=== PATIENT | female | born 1960 | race Caucasian/White ===

== ENCOUNTER 2016-12-20 11:34 | Inpatient (IN) | payer OTHER ==
[~2016-12-20] VITALS: Ht 160 cm; Wt 55.8 kg
[2016-12-20] VITALS (7 sets, daily range): BP systolic 140–215; BP diastolic 77–107; PULSE 85–105; RESP 16–20; TEMP 98.6–98.8; O2SAT 97–100
[~2016-12-20 11:34] MED LIST: HYDR-3533 PO; IBUP-232 PO; TRAM50 PO
[2016-12-20] MEDS ORDERED: HYDROmorphone HCL PF 1 MG/ML VIAL IV PUSH ONE ×2 (12:00→12:30)
--- NOTE | 2016-12-20 12:01 | PD ---
HPI Chief Complaint: Fall Time Seen by Provider: 11:43 Travel History International Travel<30 days: No Contact w/Intl Traveler<30days: No Traveled to known affect area: No History of Present Illness HPI patient's a 56-year-old female presents emergency department for evaluation of left leg and hip pain. She is unable to bear weight after falling down a single step off or her back porch. EMS reported some deformity of her left knee and it felt like her patella was displaced laterally. She was placed in splint and given 6 Davis grams of morphine and transported emergency department. Patient states she recently had a fall impacting the right side of her head while drunk, she states she thinks she may have rebound that side of her head today. Denies any neck pain denies any chest pain shortness of breath or abdominal pain. PFSH Past Medical History Arthritis: Yes Blood Disorders: No Anxiety: Yes Depression: Yes Cardiovascular Problems: Yes (HTN) Cerebrovascular Accident: Yes Diabetes: No Diminished Hearing: No Endocrine: No Gastrointestinal Disorders: Yes Genitourinary: No Hypertension: Yes Immune Disorder: No Implanted Vascular Access Dvce: No Musculoskeletal: Yes (CHRONIC BACK PAIN X 10 YRS) Neurologic: Yes Psychiatric: Yes Reproductive: No Respiratory: Yes Migraines: Yes Thyroid Disease: No Tetanus Vaccination: > 5 Years Influenza Vaccination: No ?: Not : 4 Para: 2 Miscarriage: 1 : 1 Tubal Ligation: Yes Past Surgical History Abdominal Surgery: Yes (APPENDECTOMY) Appendectomy: Yes Gynecologic Surgery: Yes Other Surgery: Yes Social History Alcohol Use: No (QUIT APPROX 1987) Tobacco Use: Yes (ABOUT A PACK A DAY) Substance Use: No (DENIES) Allergies-Medications (Allergen,Severity, Reaction): Coded Allergies: *MDRO Multi-Drug Resistant Organism (Verified Adverse Reaction, Unknown, ) MRSA PCR screen positive 12/22/16 Reported Meds & Prescriptions Reported Meds & Active Scripts Active Enola (Hydrocodone-Acetaminophen) 5-325 mg Tab 1-2 Tab PO Q4H PRN Aspirin 325 Mg Tab 325 Mg PO DAILY Start Aspirin after Lovenox is completed. Lovenox Inj (Enoxaparin Sodium) 40 Mg/0.4 Ml Syr 40 Mg SQ DAILY Start Aspirin after Lovenox is completed. Review of Systems Except as stated in HPI: all other systems reviewed are Neg Physical Exam Narrative GENERAL: Well-developed, thin, appears older than stated age, mildly discomforted. SKIN: Focused skin assessment warm/dry. HEAD: Atraumatic. Normocephalic. EYES: Pupils equal and round. No scleral icterus. No injection or drainage. ENT: No nasal bleeding or discharge. Mucous membranes pink and moist. NECK: Trachea midline. No JVD. CARDIOVASCULAR: Regular rate and rhythm. No murmur appreciated. RESPIRATORY: No accessory muscle use. Clear to auscultation. Breath sounds equal bilaterally. GASTROINTESTINAL: Abdomen soft, non-tender, nondistended. Hepatic and splenic margins not palpable. MUSCULOSKELETAL: There is an obvious shortening to the left lower extremity, tenderness along the femoral shaft particularly the distal aspect. Pulse motor and sensory intact distally in all 4 extremity's. Compartments are soft. Examination of the ankle tib-fib and hip are unremarkable. Examination remainder of extremities is unremarkable. No midline CT or L-spine tenderness.. No clubbing. No cyanosis. No edema. NEUROLOGICAL: Awake and alert. No obvious cranial nerve deficits. Motor grossly within normal limits. Normal speech. PSYCHIATRIC: Appropriate mood and affect; insight and judgment normal. Data Data Last Documented VS Vital Signs Date Time Temp Pulse Resp B/P Pulse Ox O2 Delivery O2 Flow Rate FiO2 12/20/16 14:00 105 20 180/101 97 Room Air 12/20/16 11:41 98.8 Orders Femur (Ap & Lat/2vws) (12/20/16 ) Hip, Uni(Ap&Lat) W Ap Pelvis (12/20/16 ) Ct Brain W/O Iv Contrast(Rout) (12/20/16 ) Ct Cerv Spine W/O Contrast (12/20/16 ) Chest, Single Ap (12/20/16 ) Electrocardiogram (12/20/16 11:43) Basic Metabolic Panel (Bmp) (12/20/16 11:43) Ckmb (Isoenzyme) Profile (12/20/16 11:43) Complete Blood Count With Diff (12/20/16 11:43) Magnesium (Mg) (12/20/16 11:43) Prothrombin Time / Inr (Pt) (12/20/16 11:43) Act Partial Throm Time (Ptt) (12/20/16 11:43) Ecg Monitoring (12/20/16 11:43) Iv Access Insert/Monitor (12/20/16 11:43) Oximetry (12/20/16 11:43) Oxygen Administration (12/20/16 11:43) Sodium Chloride 0.9% Flush (Ns Flush) (12/20/16 11:45) Hydromorphone Pf Inj (Dilaudid Pf Inj) (12/20/16 12:00) Hydromorphone Pf Inj (Dilaudid Pf Inj) (12/20/16 12:30) Urinary Catheter Management CASSANDRA.Q8H (12/20/16 12:37) Apply Cervical Collar (12/20/16 13:30) Ondansetron Inj (Zofran Inj) (12/20/16 13:45) Lorazepam Inj (Ativan Inj) (12/20/16 13:45) Canvas Knee Splint (Cks) (12/20/16 ) Diet Npo (12/20/16 Lunch) Ct Facial Bones W/O Iv Cont (12/20/16 ) Consult Orthopedic (12/20/16 ) Gentamicin Inj (Gentamicin Inj) (12/20/16 14:49) Remove Cervical Collar (12/20/16 14:58) Admit Order (Ed Use Only) (12/20/16 ) Alcohol (Ethanol) (12/20/16 12:05) Labs Laboratory Tests Test 12/20/16 12:05 White Blood Count 5.0 TH/MM3 Red Blood Count 4.18 MIL/MM3 Hemoglobin 13.6 GM/DL Hematocrit 40.4 % Mean Corpuscular Volume 96.6 FL Mean Corpuscular Hemoglobin 32.6 PG Mean Corpuscular Hemoglobin 33.7 % Concent Red Cell Distribution Width 14.2 % Platelet Count 242 TH/MM3 Mean Platelet Volume 9.0 FL Neutrophils (%) (Auto) 73.4 % Lymphocytes (%) (Auto) 18.2 % Monocytes (%) (Auto) 6.5 % Eosinophils (%) (Auto) 0.9 % Basophils (%) (Auto) 1.0 % Neutrophils # (Auto) 3.7 TH/MM3 Lymphocytes # (Auto) 0.9 TH/MM3 Monocytes # (Auto) 0.3 TH/MM3 Eosinophils # (Auto) 0.0 TH/MM3 Basophils # (Auto) 0.0 TH/MM3 CBC Comment DIFF FINAL Differential Comment MDM Medical Decision Making Medical Screen Exam Complete: Yes Emergency Medical Condition: Yes Interpretation(s) EKG shows normal sinus rhythm normal axis normal R-wave progression. Intervals within normal limits, no concerning ST segment changes. This normal EKG. Differential Diagnosis Femur fracture, neck injury, head injury, Narrative Course Patient roomed emergency department, plain film x-rays reveal a distal femur fracture spiral in nature. Patient also has bruising on the right side of her face and CAT scan head and C-spine were ordered. The patient states she's too claustrophobic to have a CAT scan done. She was placed in a cervical collar. Unfortunately she has distracting injury and her C-spine cannot be cleared by Nexus criteria at this time. We'll reevaluate the patient. Plan is for admission ultimately. Patient was discussed with Dr. Baldwin who will attempt to place on the schedule today for operative intervention. Patient remained nothing by mouth while in the emergency department until final decision is made for when operation to be done. Last [address] 12/20/16 Signed Impressions: Service Date/Time: Tuesday, December 20, 2016 14:09 - CONCLUSION: 1. Right infraorbital soft tissue swelling. Arnol Bee Jr., MD Hip and Pelvis X-Ray 12/20/16 0000 Signed Impressions: Service Date/Time: Tuesday, December 20, 2016 12:15 - CONCLUSION: Fracture of distal femur not identified on this examination and the hip appears intact. Gómez Clemons MD Head CT 12/20/16 0000 Signed Impressions: Service Date/Time: Tuesday, December 20, 2016 14:05 - CONCLUSION: 1. No acute intracranial abnormality. Kenny Byrd MD Femur X-Ray 12/20/16 0000 Signed Impressions: Service Date/Time: Tuesday, December 20, 2016 12:13 - CONCLUSION: Distal femoral fracture. Gómez Clemons MD Chest X-Ray 12/20/16 0000 Signed Impressions: Service Date/Time: Tuesday, December 20, 2016 12:07 - CONCLUSION: No acute cardiopulmonary disease. Gómez Clemons MD Cervical Spine CT 12/20/16 0000 Signed Impressions: Service Date/Time: Tuesday, December 20, 2016 14:05 - CONCLUSION: 1. Subtle anterolisthesis of C5 on C6, likely degenerative. Flexion and extension views may be obtained if there is clinical concern regarding ligamentous instability. 2. Otherwise, no acute fracture or subluxation. Kenny Byrd MD Her c-collar was removed following CT cervical spine is a very low index of suspicion for ligamentous injury in this patient. Diagnosis Primary Impression: Femur fracture, left Qualified Code: S72.442A - Closed displaced fracture of distal epiphysis of left femur, initial encounter Admitting Information Admitting Physician Requests: Admit Scripts Hydrocodone-Acetaminophen (Enola)5-325 mg Tab1-2 Tab PO Q4H PRN (PAIN) #60 TAB Ref 0 Prov:Kulwant Vanegas MD 12/20/16 Aspirin 325 Mg Tlo075 Mg PO DAILY #30 TAB Ref 0 Start Aspirin after Lovenox is completed. Prov:Kulwant Vanegas MD 12/20/16 Enoxaparin Inj (Lovenox Inj)40 Mg/0.4 Ml Syr40 Mg SQ DAILY #20 SYRINGE Ref 0 Start Aspirin after Lovenox is completed. Prov:Kulwant Vanegas MD 12/20/16 Condition: Stable Niranjan Reed MD Dec 20, 2016 12:01
[2016-12-20] MEDS: SODIUM CHLORIDE 0.9% FLUSH 10 ML FLUSH IVF PRN ×3 (12:04→13:50)
[2016-12-20 12:49] LABS: AUTOMATED NEUTROPHIL # 3.7 TH/MM3 (1.8-7.7); EOSINOPHIL % 0.9 % (0.0-4.0); HEMATOCRIT 40.4 % (35.0-46.0); HEMO FLAGS DIFF FINAL; LYMPH % 18.2 % (9.0-44.0); LYMPHOCYTE # 0.9 TH/MM3 (1.0-4.8); MEAN CELL VOLUME 96.6 FL (80.0-100.0); MEAN CORPUSCULAR HEMOGLOBIN 32.6 PG (27.0-34.0); MEAN CORPUSCULAR HGB CONC 33.7 % (32.0-36.0); MONO % 6.5 % (0.0-8.0); NEUT % 73.4 % (16.0-70.0); PLATELET COUNT 242 TH/MM3 (150-450); RED BLOOD COUNT 4.18 MIL/MM3 (4.00-5.30); RED CELL DISTRIBUTION WIDTH 14.2 % (11.6-17.2)
--- NOTE | 2016-12-20 13:00 | RADRPT ---
EXAM DATE/TIME: 12/20/2016 12:07 [facility] COMPARISON: CHEST SINGLE AP, January 28, 2016, 20:09. INDICATIONS : Fall, left femur fracture. MEDICAL HISTORY : None. SURGICAL HISTORY : None. ENCOUNTER: Initial ACUITY: 1 day PAIN SCORE: 0/10 LOCATION: Bilateral chest FINDINGS: The lungs are clear without infiltrate, nodule, or mass. There is no appreciable pleural effusion fo r technique. Heart and mediastinum are unremarkable. CONCLUSION: No acute cardiopulmonary disease. Gómez Clemons MD on December 20, 2016 at 12:58 Board Certified Radiologist. This report was verified electronically.
--- NOTE | 2016-12-20 13:02 | RADRPT ---
EXAM DATE/TIME: 12/20/2016 12:13 [facility] COMPARISON: No previous studies available for comparison. INDICATIONS : Fall, left femur pain. MEDICAL HISTORY : None. SURGICAL HISTORY : None. ENCOUNTER: Initial ACUITY: 1 day PAIN SCORE: 10/10 LOCATION: Left femur FINDINGS: There is a complete distal femoral fracture with angulation and displacement of the fracture fragment s. Osteopenia is seen. CONCLUSION: Distal femoral fracture. Gómez Clemons MD on December 20, 2016 at 13:00 Board Certified Radiologist. This report was verified electronically.
--- NOTE | 2016-12-20 13:06 | RADRPT ---
EXAM DATE/TIME: 12/20/2016 12:15 [facility] COMPARISON: No previous studies available for comparison. INDICATIONS : Fall, left femur pain. MEDICAL HISTORY : None. SURGICAL HISTORY : None. ENCOUNTER: Initial ACUITY: 1 day PAIN SCORE: 10/10 LOCATION: Left femur FINDINGS: No definite fractures, or dislocations are identified. No definite lytic or sclerotic lesion is seen . CONCLUSION: Fracture of distal femur not identified on this examination and the hip appears intact. Gómez Clemons MD on December 20, 2016 at 13:03 Board Certified Radiologist. This report was verified electronically.
[2016-12-20] MEDS ORDERED: ONDANSETRON HCL 4 MG/2 ML VIAL IV PUSH ONE ×2 (13:38→13:45)
[2016-12-20] MEDS ORDERED: LACTATED RINGER'S 1000 ML INJ 1,000 ML IV ONE (13:38)
[2016-12-20] MEDS ORDERED: PHENYLEPH/NS 1000 MCG/10 ML SYR IV ONE (13:38)
[2016-12-20] MEDS ORDERED: PROPOFOL 200 MG/20 ML AMP IV ONE (13:38)
[2016-12-20] MEDS ORDERED: LORazepam 2 MG/ML VIAL IV PUSH ONE (13:45)
--- NOTE | 2016-12-20 14:40 | RADRPT ---
EXAM DATE/TIME: 12/20/2016 14:09 [facility] COMPARISON: No previous studies available for comparison. INDICATIONS : Trauma, fall. Right facial bruising. RADIATION DOSE: 36.81 CTDIvol (mGy) MEDICAL HISTORY : Hypertension. SURGICAL HISTORY : None. ENCOUNTER: Initial ACUITY: 1 day PAIN SCORE: 6/10 LOCATION: Right facial TECHNIQUE: Volumetric scanning of the facial bones was performed. Using automated exposure control and adjustme nt of the mA and/or kV according to patient size, radiation dose was kept as low as reasonably achiev able to obtain optimal diagnostic quality images. DICOM format image data is available electronicAkampus y for review and comparison. FINDINGS: ORBITS: The orbital and infraorbital osseous structures are intact. The retroconal structures have a normal configuration. No radiopaque foreign bodies are seen. NASAL BONE: The nasal bone and maxillary spine are intact ZYGOMATIC ARCHES: Symmetric without evidence of fracture. SINUSES: The maxillary, ethmoid and frontal sinuses are intact. No air-fluid levels seen. NASAL CAVITY: The nasal septum is intact and midline. The lacrimal ducts are intact. SOFT TISSUES: No radiopaque foreign bodies seen. Right infraorbital soft tissue swelling. INTRACRANIAL: No intracranial air seen. CRIBIFORM PLATE: Grossly intact. CONCLUSION: 1. Right infraorbital soft tissue swelling. Arnol Bee Jr., MD on December 20, 2016 at 14:36 Board Certified Radiologist. This report was verified electronically.
[2016-12-20] MEDS ORDERED: GENTAMICIN SULFATE 80 MG/2 ML VIAL ONE (14:49)
--- NOTE | 2016-12-20 14:50 | RADRPT ---
EXAM DATE/TIME: 12/20/2016 14:05 [facility] COMPARISON: CT BRAIN W/O CONTRAST, January 28, 2016, 21:08. INDICATIONS : Trauma, fall. RADIATION DOSE: 56.35 CTDIvol (mGy) MEDICAL HISTORY : Hypertension. Cerebrovascular disease. SURGICAL HISTORY : None. ENCOUNTER: Initial ACUITY: 1 day PAIN SCALE: 0/10 LOCATION: cranial TECHNIQUE: Multiple contiguous axial images were obtained of the head. Using automated exposure control and adj ustment of the mA and/or kV according to patient size, radiation dose was kept as low as reasonably a chievable to obtain optimal diagnostic quality images. DICOM format image data is available electro nically for review and comparison. FINDINGS: CEREBRUM: The ventricles are normal for age. No evidence of midline shift, mass lesion, hemorrhage or acute in farction. No extra-axial fluid collections are seen. POSTERIOR FOSSA: The cerebellum and brainstem are intact. The 4th ventricle is midline. The cerebellopontine angle i s unremarkable. EXTRACRANIAL: The visualized portion of the orbits is intact. Mild soft tissue swelling in the right infraorbital r egion. No significant intraconal or extraconal hematoma or mass. SKULL: The calvaria is intact. No evidence of skull fracture. CONCLUSION: 1. No acute intracranial abnormality. Kenny Byrd MD on December 20, 2016 at 14:45 Board Certified Radiologist. This report was verified electronically.
--- NOTE | 2016-12-20 14:54 | RADRPT ---
EXAM DATE/TIME: 12/20/2016 14:05 [facility] COMPARISON: No previous studies available for comparison. INDICATIONS : Trauma, fall. Neck pain. RADIATION DOSE: 32.36 CTDIvol (mGy) MEDICAL HISTORY : Hypertension. SURGICAL HISTORY : None. ENCOUNTER: Initial ACUITY: 1 day PAIN SCALE: 5/10 LOCATION: neck TECHNIQUE: Volumetric scanning of the cervical spine was performed. Multiplanar reconstructions in the sagittal, coronal and oblique axial planes were performed. Using automated exposure control and adjustment o f the mA and/or kV according to patient size, radiation dose was kept as low as reasonably achievable to obtain optimal diagnostic quality images. DICOM format image data is available electronically f or review and comparison. FINDINGS: Subtle anterolisthesis of C5 on C6. Sagittal alignment is otherwise maintained. Facets are normally a ligned. The body heights are intact. No acute bony fracture. Dense is intact. Mild degenerative spond ylosis of the lower cervical spine with variable disc bulge and facet arthropathy. Bony central canal is patent. No significant prevertebral soft tissue hematoma or swelling. Visualized lung apices are clear. CONCLUSION: 1. Subtle anterolisthesis of C5 on C6, likely degenerative. Flexion and extension views may be obtain ed if there is clinical concern regarding ligamentous instability. 2. Otherwise, no acute fracture or subluxation. Kenny Byrd MD on December 20, 2016 at 14:48 Board Certified Radiologist. This report was verified electronically.
--- NOTE | 2016-12-20 15:53 | HHI.HP ---
HPI Service [facility] Hospitalists Primary Care Physician No Primary Care Physician Admission Diagnosis Femur Fracture. Diagnoses: Chief Complaint: Left leg pain s/p fall Right sided facial pain s/p fall Travel History International Travel<30 Days: No Contact w/Intl Traveler <30 Da: No Traveled to Known Affected Are: No History of Present Illness Written by Molly Garcia PA-C acting as scribe for Dr. Luu on 12/20/16 at 15:43. This is a 56-year-old female with a past medical history significant for anxiety , depression, chronic back pain and osteoarthritis who presents to [facility] ED with complaints of left leg pain status post a fall she sustained at home earlier today and was found to have a distal femur fracture. Patient reports she tripped on the steps coming out of her house and fell with her left leg up underneath her and felt a distinct pop. Patient believes she may have hit the right side of her face. Patient reports a history of falling a few days ago inside her home when she tripped over her feet after she had a few too many drinks in celebration of her anniversary injuring the right side of her face. She denies any loss of consciousness as a result of today's fall or the one that she sustained several days ago. Patient states that she is not an everyday drinker and in fact had not had any alcohol since 1987 up until 2 days ago. Presently, she is complaining of 6 out of 10 left leg pain. ED physician has already consulted or if it was tentatively planning take the patient back to the OR today. She has elevated blood pressure likely due to pain. Patient does not endorse a history of hypertension. Patient denies any headache or vision changes. She denies any cough shortness of breath or chest pain. She does endorse complaints of nausea which she thinks is from the pain medication. She denies any vomiting or abdominal pain. Denies any diarrhea, constipation or urinary difficulties. Review of Systems Except as stated in HPI: all other systems reviewed are Neg Past Family Social History Past Medical History Anxiety Depression Chronic back pain Osteoarthritis Past Surgical History Bilateral tubal ligation Appendectomy Reported Medications Patient denies any home medications. Allergies: Coded Allergies: No Known Allergies (Unverified , 12/20/16) Active Ordered Medications Current Medications Medications (Trade) Dose Ordered Sig/Laverne Route Start Time Stop Time Status Last Admin (NS Flush) 2 ml UNSCH PRN IVF 12/20/16 11:45 12/20/16 13:50 Family History Mother, age 73, healthy without any medical problems Social History Patient reports history of tobacco use of a pack per day. Patient reports no alcohol consumption since 1987 up until 2 days ago when she drank celebrating her anniversary. Patient denies any illicit drug use. Physical Exam Vital Signs Vital Signs Date Time Temp Pulse Resp B/P Pulse Ox O2 Delivery O2 Flow Rate FiO2 12/20/16 12:55 91 19 211/95 98 Room Air 12/20/16 12:20 85 20 215/107 97 Room Air 12/20/16 12:10 20 97 Room Air 12/20/16 12:05 97 Room Air 12/20/16 11:41 98.8 95 20 204/93 100 Physical Exam GENERAL: This is a well-nourished, well-developed patient, in no apparent distress. Awake and alert. SKIN: Large right-sided hematoma with associated facial swelling over the cheekbone. No ocular involvement. HEAD: Normocephalic. No temporal or scalp tenderness. EYES: Pupils equal round and reactive. Extraocular motions intact. No scleral icterus. No injection or drainage. ENT: Nose without bleeding or purulent drainage. Throat without erythema, tonsillar hypertrophy or exudate. Uvula midline. Airway patent. NECK: Trachea midline. No lymphadenopathy. Supple, nontender, no meningeal signs. CARDIOVASCULAR: Regular rate and rhythm without murmurs, gallops, or rubs. RESPIRATORY: Clear to auscultation. Breath sounds equal bilaterally. No wheezes , rales, or rhonchi. GASTROINTESTINAL: Abdomen soft, non-tender, nondistended. No hepato-splenomegaly , or palpable masses. No guarding. MUSCULOSKELETAL: Left lower extremity splinted. Neurovascular intact distally. NEUROLOGICAL: Awake and alert. Able to move all extremities except for left lower extremity which is splinted. Normal speech. Laboratory Laboratory Tests Test 12/20/16 12:05 White Blood Count 5.0 Red Blood Count 4.18 Hemoglobin 13.6 Hematocrit 40.4 Mean Corpuscular Volume 96.6 Mean Corpuscular Hemoglobin 32.6 Mean Corpuscular Hemoglobin 33.7 Concent Red Cell Distribution Width 14.2 Platelet Count 242 Mean Platelet Volume 9.0 Neutrophils (%) (Auto) 73.4 Lymphocytes (%) (Auto) 18.2 Monocytes (%) (Auto) 6.5 Eosinophils (%) (Auto) 0.9 Basophils (%) (Auto) 1.0 Neutrophils # (Auto) 3.7 Lymphocytes # (Auto) 0.9 Monocytes # (Auto) 0.3 Eosinophils # (Auto) 0.0 Basophils # (Auto) 0.0 CBC Comment DIFF FINAL Differential Comment Result Diagram: 12/20/16 1205 Imaging Last Impressions Maxillofacial CT 12/20/16 0000 Signed Impressions: Service Date/Time: Tuesday, December 20, 2016 14:09 - CONCLUSION: 1. Right infraorbital soft tissue swelling. Arnol Bee Jr., MD Hip and Pelvis X-Ray 12/20/16 0000 Signed Impressions: Service Date/Time: Tuesday, December 20, 2016 12:15 - CONCLUSION: Fracture of distal femur not identified on this examination and the hip appears intact. Gómez Clemons MD Head CT 12/20/16 0000 Signed Impressions: Service Date/Time: Tuesday, December 20, 2016 14:05 - CONCLUSION: 1. No acute intracranial abnormality. Kenny Byrd MD Femur X-Ray 12/20/16 0000 Signed Impressions: Service Date/Time: Tuesday, December 20, 2016 12:13 - CONCLUSION: Distal femoral fracture. Gómez Clemons MD Chest X-Ray 12/20/16 0000 Signed Impressions: Service Date/Time: Tuesday, December 20, 2016 12:07 - CONCLUSION: No acute cardiopulmonary disease. Gómez Clemons MD Cervical Spine CT 12/20/16 0000 Signed Impressions: Service Date/Time: Tuesday, December 20, 2016 14:05 - CONCLUSION: 1. Subtle anterolisthesis of C5 on C6, likely degenerative. Flexion and extension views may be obtained if there is clinical concern regarding ligamentous instability. 2. Otherwise, no acute fracture or subluxation. Kenny Byrd MD Assessment and Plan Assessment and Plan 56-year-old female with a past medical history significant for anxiety, depression, chronic back pain and osteoarthritis who presents to [facility] ED with complaints of left leg pain status post a fall she sustained at home earlier today and was found to have a distal femur fracture. Left distal femur fracture s/p fall at home - X-ray of the left leg personally reviewed reveals complete distal femoral fracture with angulation and displacement of the fracture fragments as well as osteopenic appearance of the bone - Keep patient nothing by mouth - Continue left leg immobilization splint - Ortho tentatively planning to take patient back to the OR today - Pain management Right sided facial contusion s/p fall at home - Patient reports initial injury 2 days ago increased she may have hit the right upper face again today - Maxillofacial CT scan personally reviewed and shows right infraorbital soft tissue swelling but no evidence of fracture - Head CT shows no acute intracranial abnormality - CT of the cervical spine shows anterolisthesis of C5 on C6 likely degenerative and no evidence of fracture or subluxation. Elevated blood pressure - Patient did not endorse a history of hypertension - Likely situational, due to pain - Clonidine when necessary - Continue to monitor DVT prophylaxis - Will hold off on chemoprophylaxis at this time due to pending surgical intervention This note was transcribed by marcus Garcia PA-C. I, Dr. Obdulio Luu personally performed the history, physical exam, and medical decision making; and confirmed the accuracy of the information in the transcribed note. Authenticated by Dr. Obdulio Luu on 12/20/16 at 17:25. Discussed Condition With Patient, , nursing staff and ED physician Physician Certification 2 Midnight Certification Type: Admission for Inpatient Services Order for Inpatient Services The services are ordered in accordance with Medicare regulations or non- Medicare payer requirements, as applicable. In the case of services not specified as inpatient-only, they are appropriately provided as inpatient services in accordance with the 2-midnight benchmark. Estimated LOS (days): 3 3 days is the estimated time the patient will need to remain in the hospital, assuming treatment plan goals are met and no additional complications. Post-Hospital Plan: Not yet determined Molly Garcia Dec 20, 2016 15:53 Obdulio Luu MD Dec 20, 2016 17:25
[2016-12-20] MEDS ORDERED: BISACODYL 10 MG SUPP RECTAL PRN (16:00)
[2016-12-20] MEDS ORDERED: LACTULOSE SYRUP 20 GM/30 ML CUP PO PRN (16:00)
[2016-12-20] MEDS ORDERED: ONDANSETRON HCL 4 MG/2 ML VIAL IVP PRN (16:00)
[2016-12-20] MEDS ORDERED: NALOXONE HCL 0.4 MG/ML AMP IV PRN ×2 (16:00→19:15)
[2016-12-20] MEDS ORDERED: ACETAMINOPHEN 325 MG TAB PO PRN (16:00)
[2016-12-20] MEDS ORDERED: HYDROmorphone HCL PF 1 MG/ML VIAL IV PRN ×2 (16:00)
[2016-12-20 16:26] LABS: APTT (PATIENT) 21.5 SEC (24.3-30.1); PROTHROMBIN TIME - PATIENT 10.7 SEC (9.8-11.6)
[2016-12-20 16:40] LABS: ANION GAP 9 MEQ/L (5-15); BICARBONATE 22.6 MEQ/L (21.0-32.0); BLOOD UREA NITROGEN 9 MG/DL (7-18); CHLORIDE 107 MEQ/L (98-107); GLOMERULAR FILTRATION RATE 103 ML/MIN (>89); MAGNESIUM 1.8 MG/DL (1.5-2.5); POTASSIUM 3.2 MEQ/L (3.5-5.1); SODIUM (NA) 139 MEQ/L (136-145)
[2016-12-20 16:49] LABS: CREATINE KINASE 80 U/L (26-192)
[2016-12-20] MEDS ORDERED: VANCOMYCIN HCL 1000 MG VIAL ONE (16:54)
[2016-12-20] MEDS ORDERED: ceFAZolin INJ 1,000 MG VIAL ONE (16:55)
[2016-12-20] MEDS ORDERED: FAMOTIDINE 20 MG/2 ML VIAL ONE (16:56)
[2016-12-20] MEDS ORDERED: MIDAZOLAM HCL 2 MG/2 ML VIAL ONE (16:56)
[2016-12-20] MEDS: DEXT 5%-NACL 0.45% 1000 ML INJ 1,000 ML IV SCH (19:11)
[2016-12-20] MEDS ORDERED: ASPI325T PO (19:14)
[2016-12-20] MEDS ORDERED: ENOX40P SQ (19:14)
[2016-12-20] MEDS ORDERED: NORC5TAB PO (19:14)
[2016-12-20] MEDS ORDERED: MAGNESIUM HYDROXIDE SUSP 30 ML CUP PO PRN (19:15)
[2016-12-20] MEDS ORDERED: MISCELLANEOUS PHARMACY INFORMATION XX ONE (19:15)
[2016-12-20] MEDS ORDERED: Post-op Orders (for Pharmacy) MISC XX ONE (19:15)
[2016-12-20] MEDS ORDERED: MISCELLANEOUS NURSING INFORMATION XX PRN (19:15)
[2016-12-20] MEDS ORDERED: SODIUM CHLORIDE 0.9% FLUSH 5 ML FLUSH IVF PRN (19:15)
[2016-12-20] MEDS ORDERED: ACETAMINOPHEN/HYDROcodone 325 MG/5 MG TAB PO PRN (19:15)
--- NOTE | 2016-12-20 19:25 | RADRPT ---
EXAM DATE/TIME: 12/20/2016 18:48 [facility] COMPARISON: FEMUR LEFT (AP & LAT/2VWS), December 20, 2016, 12:13. INDICATIONS : Post hardware placement left distal femur MEDICAL HISTORY : None. SURGICAL HISTORY : None. ENCOUNTER: Subsequent ACUITY: 1 day PAIN SCORE: Non-responsive. LOCATION: Left Femur FINDINGS: 6 images are recorded digitally using C-arm in the operating room during placement of a lateral femor al plate and multiple screws. CONCLUSION: Intraoperative images Arnol Richmond MD on December 20, 2016 at 19:22 Board Certified Radiologist. This report was verified electronically.
[2016-12-20] MEDS ORDERED: DO NOT ADM ANY ANTICOAGULANT DRUGS PRN (19:30)
[2016-12-20] MEDS ORDERED: fentaNYL CITRATE 250 MCG/5 ML AMP ONE (19:42)
[2016-12-20] MEDS ORDERED: *ONDANSETRON 4 MG VIAL PERIprocedural Use ONLY ONE (19:49)
[2016-12-20] MEDS ORDERED: *LABETALOL HCL 100 MG/20 ML VIAL PERIprocedural Use ONLY ONE ×2 (19:49→20:06)
[2016-12-20] MEDS ORDERED: *Lactated Ringer's INJ 1,000 ML ONE (20:05)
[2016-12-20] MEDS ORDERED: DOCUSATE SODIUM 50 MG/SENNA 8.6 MG TAB PO SCH (21:00)
[2016-12-20] MEDS: DOCUSATE SODIUM 50 MG/SENNA 8.6 MG TAB PO SCH (21:13)
[2016-12-20] MEDS: SODIUM CHLORIDE 0.9% FLUSH 5 ML FLUSH IVF SCH (21:13)
[2016-12-20] MEDS: ONDANSETRON HCL 4 MG/2 ML VIAL IVP PRN (21:14)
[2016-12-20] MEDS: ACETAMINOPHEN/HYDROcodone 325 MG/5 MG TAB PO PRN (21:16)
[2016-12-20] MEDS: diphenhydrAMINE HCL 25 MG CAP PO PRN (21:25)
[2016-12-20] MEDS: MORPHINE SULFATE 4 MG/ML INJ IV PUSH PRN (23:49)
[2016-12-21] VITALS (7 sets, daily range): BP systolic 133–158; BP diastolic 64–83; PULSE 80–106; RESP 16–18; TEMP 98.7–100.8; O2SAT 93–99
[2016-12-21 02:06] LABS: AUTOMATED NEUTROPHIL # 4.4 TH/MM3 (1.8-7.7); BASOPHIL % 0.6 % (0.0-2.0); EOSINOPHIL % 0.5 % (0.0-4.0); HEMATOCRIT 29.4 % (35.0-46.0); HEMO FLAGS DIFF FINAL; LYMPH % 19.7 % (9.0-44.0); LYMPHOCYTE # 1.2 TH/MM3 (1.0-4.8); MEAN CELL VOLUME 98.9 FL (80.0-100.0); MEAN CORPUSCULAR HGB CONC 32.4 % (32.0-36.0); MONO % 6.3 % (0.0-8.0); NEUT % 72.9 % (16.0-70.0); PLATELET COUNT 187 TH/MM3 (150-450); RED BLOOD COUNT 2.97 MIL/MM3 (4.00-5.30); RED CELL DISTRIBUTION WIDTH 14.4 % (11.6-17.2); WHITE BLOOD COUNT 6.1 TH/MM3 (4.0-11.0)
[2016-12-21] MEDS: MORPHINE SULFATE 4 MG/ML INJ IV PUSH PRN ×2 (03:16→08:17)
--- NOTE | 2016-12-21 05:30 | MB ---
cc: FANNY WRAY DATE OF CONSULTATION 12/20/2016 REASON FOR CONSULTATION Left femur fracture. HISTORY The patient is a 56-year-old female who has a medical history for anxiety, depression, chronic back pain and osteoarthritis, possible history of CVA in the past. The patient says that she sustained a fall earlier in the day. She tripped, twisted her leg beneath her and felt a couple of pops and the leg ended up being deformed behind her back. She had a fall a couple of days earlier than that and ended up having some bruising about the face. According to the ER physician and the notes, the patient said that she had a couple too many drinks. When I asked her about her alcohol intake, she denied having alcohol any more recently than six months ago. She does not describe significant pain in other areas of the body. The patient does chronically smoke. The patient was found to have a distal femur fracture. The ER physician contacted me, we viewed the images on line and we recommended admission to the hospitalist. The patient was admitted to the hospital. PAST MEDICAL HISTORY Medical history is as above. PAST SURGICAL HISTORY 1. Tubal ligation. 2. Appendectomy. ALLERGIES No known drug allergies. PHYSICAL EXAMINATION VITAL SIGNS: The patient's temperature is not recorded, pulse is 102, respirations 19, blood pressure 181/77. Earlier it was elevated at 215/107. GENERAL: The patient is awake, alert and oriented x 3. She has normal affect, insight and judgment. She is somewhat thin. HEENT: Her head shows bruising on the right side of the face. Extraocular muscles are intact. Oropharynx is moist and clear. NECK: Nontender. LUNGS: Clear to auscultation bilaterally. ABDOMEN: Soft, nontender, nondistended. EXTREMITIES: The left lower extremities currently in a splint with a cold machine applied. There was no drainage noted. She can actually moves the toes well and she has 2+ dorsalis pedis pulse and about her lower extremities. The bilateral shoulders, elbows and wrists had good active range of motion with no obvious angulation and no tenderness to bony prominences. LABORATORY STUDIES Reviewed. White cell count of 5.0, hematocrit is 40.4, platelets of 242. Coagulations: INR is 1.0. Chemistries: Glucose is 111, creatinine 0.6. Toxicology shows less than 3 ethyl alcohol. IMAGING STUDIES I have reviewed the x-rays of the hip and of the pelvis and of the femur and have reviewed the reports, shows the patient has diffuse osteopenia. There is a fracture of the distal end of the femur which is supracondylar in nature. There appears to be a nondisplaced crack that is going intraarticular as well, although I do not see displacement of the articular surface. She has had a head CT. The impression is no acute intracranial abnormality. Cervical spine CT shows subtle anterolisthesis of C5-6 likely degenerative, otherwise no fractures or subluxations. Chest x-ray - No acute cardiopulmonary disease. Maxillofacial CT shows right infraorbital soft tissue swelling. IMPRESSION 1. Left distal femur fracture, intraarticular. 2. Possible alcohol abuse with frequent falls. 3. Significant high blood pressures. DECISION MAKING We reviewed the diagnosis in detail with the patient. We discussed treatment options. This is a very serious fracture pattern. If left untreated this patient may not be able to ambulate effectively. This can lead to severe dysfunction of the left leg, has increased chance of developing DVT, pulmonary embolism or possible . We discussed the risks and benefits of surgical management. I have recommended urgent surgical management for this patient so as to potentially restore function to the leg. This would consist of open reduction, internal fixation. We discussed various options such as plates and screws versus intramedullary nailing. This will be determined intraoperatively. We discussed postoperative rehabilitation in detail. We discussed the use of blood thinners to help reduce the chance of blood clots. She understands the risks of surgery to include but not be limited to injury to nerves, blood vessels, bleeding, infection, failure of hardware, need for operation, continued pain, loss range of motion to associated joints, DVT, pulmonary embolus, pneumonia and . The patient does want to move forward with surgical management. The patient has been evaluated by the admitting physician and there was no definite outstanding reason to delay surgical management at this point. MD ISAIAS Chavez/ROSA /5:02 PM /5:08 AM
[2016-12-21] MEDS: DEXT 5%-NACL 0.45% 1000 ML INJ 1,000 ML IV SCH (05:36)
[2016-12-21] MEDS: ACETAMINOPHEN/HYDROcodone 325 MG/5 MG TAB PO PRN (05:36)
[2016-12-21] MEDS: NS + KCL 20 MEQ INJ 1,000 ML IV SCH ×2 (08:00→17:58)
[2016-12-21] MEDS: diphenhydrAMINE HCL 25 MG CAP PO PRN ×2 (08:16→20:05)
[2016-12-21] MEDS: MULTIVITAMINS/MINERALS THERAPEUTIC TAB PO SCH (08:16)
[2016-12-21] MEDS: DOCUSATE SODIUM 50 MG/SENNA 8.6 MG TAB PO SCH ×2 (08:17→20:04)
[2016-12-21] MEDS: SENNOSIDES 8.6 MG TAB PO PRN (08:17)
[2016-12-21] MEDS: SODIUM CHLORIDE 0.9% FLUSH 5 ML FLUSH IVF SCH ×2 (08:18→20:04)
[2016-12-21] MEDS: ONDANSETRON HCL 4 MG/2 ML VIAL IVP PRN (08:27)
[2016-12-21] MEDS ORDERED: ACETAMINOPHEN/HYDROcodone 325 MG/10 MG TAB PO PRN (09:00)
[2016-12-21] MEDS: CYCLOBENZAPRINE HCL 10 MG TAB PO PRN ×2 (09:35→17:56)
--- NOTE | 2016-12-21 12:58 | MP ---
cc: KULWANT WRAY DATE OF SURGERY: 12/20/2016 PREOPERATIVE DIAGNOSIS: Left distal femur fracture, intraarticular supracondylar. POSTOPERATIVE DIAGNOSIS: Left distal femur fracture, intraarticular supracondylar. SURGEON: Kulwant Wray MD. TRAVEL CLERK FER Turner The surgical procedure was assisted by my Advanced Registered Nurse Practitioner. My [employer] presence was necessary throughout this case for the manipulation and positioning of the surgical extremity. My [employer] was assisting me throughout the duration of this procedure. The skill set of an Advance Registered Nurse Practitioner was medically necessary to complete this procedure. During the surgical case, the surgical lead was working at the back table and the Advance Registered Nurse Practitioner was directly assisting me. OPERATION: Left distal femur, supracondylar intraarticular fracture, open reduction, internal fixation. ESTIMATED BLOOD LOSS: 300 cc. ANESTHESIA: General anesthesia. PROCEDURE: The patient was brought back to the operative theater, she received IV Ancef and vancomycin, general anesthesia was administered, both the lower extremities was prepped and draped in the usual sterile fashion. We did apply a non-sterile tourniquet but we did not use it during the case. We made it standard curvilinear incision on the lateral aspect of the knee dissected through the iliotibial band and then we reflected the vascularis lateralis anteriorly taking care of the perforating arteries using Aquamantys. This identified the fracture very nicely. The fracture did have one oblique component and then there were several other components including a nondisplaced interarticular component which remained non-displaced then some other small areas of fragmentation. We reduced the large oblique component using fracture reduction clamps and then secured this with two individual 4.5 synthes fully threaded cortex screws using a lag screw technique and countersunk technique. We then applied a synthes 8 hole lateral distal femoral plate into position, held this with verbruge clamps and then secured proximally and distally for the proximal aspect. We did use a single nonlocking screw to help reduce and pulled the plate down to the bone and all the other screws were locking. We have had four bicortical screws proximally and then there was also a fifth which was a very good unicortical possibly bicortical screw and distally we have had multiple locking screws. We made sure we had no interarticular penetration on fluoroscopic imaging showing anatomic alignment of the fracture and very good fixation. Note that she did have quite a bit of osteopenia or osteoporosis clinically as the bone was thoroughly irrigated, we closed the closed deep fascia with #1 Vicryl followed 2-0 Vicryl and skin destiny. The leg was dressed. POSTOPERATIVE PLAN: The plan is non-weightbearing and then will delay range of motion until we know she can protect the leg appropriately to allow for range of motion. We will also have deep venous thrombosis prophylaxis being Lovenox for 10 days followed by aspirin for a month as well as her insurance will allow us to use those products. MD ISAIAS Chavez/jorge /7:07 PM /12:53 PM MTDD
[2016-12-21] MEDS: NICOTINE 21 MG/24 HR PATCH T-DERMAL SCH (13:36)
[2016-12-21] MEDS: ACETAMINOPHEN/HYDROcodone 325 MG/10 MG TAB PO PRN ×2 (13:37→20:03)
--- NOTE | 2016-12-21 13:41 | EKG ---
Date Performed: 12/20/2016 Time Performed: 12:31:40 PTAGE: 56 years EKG: Sinus rhythm Since previous tracing, no significant change noted NORMAL ECG PREVIOUS TRACING : 01/28/2016 19.47 DOCTOR: Deacon Villanueva Interpretating Date/Time 12/21/2016 13:40:04
[2016-12-21 16:00] LABS: HEMATOCRIT 28.8 % (35.0-46.0); REVIEW FLAG FINAL
--- NOTE | 2016-12-21 17:48 | PD.ORT.PN ---
Subjective Post Op Day #: 1 Subjective Remarks Patient is resting in bed with c/o moderate pain to the right knee. The patient states her change in pain medication has helped. Pain is localized about the knee. Objective Vitals Vital Signs Date Time Temp Pulse Resp B/P Pulse Ox O2 Delivery O2 Flow Rate FiO2 12/21/16 08:57 99 21 12/21/16 08:00 99.2 96 18 137/83 97 12/21/16 04:00 99.5 98 17 158/80 93 12/21/16 00:00 98.7 80 16 137/77 98 12/20/16 20:58 98.6 85 16 140/79 99 12/20/16 20:30 98.6 80 20 160/78 100 Nasal Cannula 2 12/20/16 20:22 Room Air 2.00 12/20/16 20:15 80 20 164/81 100 Nasal Cannula 2 12/20/16 20:00 81 20 178/76 100 Nasal Cannula 2 12/20/16 19:45 93 20 188/84 95 Nasal Cannula 2 12/20/16 19:34 98.6 91 20 197/98 99 Nasal Cannula 2 I/O 12/20/16 12/20/16 12/20/16 12/21/16 12/21/16 12/21/16 06:59 14:59 22:59 06:59 14:59 22:59 Intake Total 1416 ml 1303 ml Output Total 800 ml 100 ml Balance 616 ml 1203 ml Intake Oral 360 ml 480 ml IV Total 56 ml 823 ml Other 1000 ml Output Urine Total 650 ml 100 ml Estimated Blood Loss 150 ml # Bowel Movements 0 Result Diagram: 12/21/16 1419 12/21/16 1419 Procedures Left distal femur supracondylar, intraarticular fracture with ORIF Objective Remarks The patient's dressing is C/D/I. Patient is wearing her knee immobilizer. EHL/ TA/G are intact. 2+ pedal pulse. Calf is soft and nontender. + SILT. Assessment & Plan Ortho Post Op Day #: 1 Problem List: Assessment and Plan POD #1: Left distal femur supracondylar, intraarticular fracture with ORIF 1. The patient will be NWB on the LLE 2. Continue with the knee immobilizer to restrict early range of motion and allow for healing 3. Daily dressing changes starting POD #2 4. Ice to the left knee PRN 5. Lovenox for 10 days followed by ASA 325 mg PO daily for 30 days for DVT prophylaxis 6. F/U with Dr. Vanegas or Kota MONROE in the office in 1-2 weeks. Harjeet Lees Dec 21, 2016 17:48
[2016-12-21] MEDS: ENOXAPARIN SODIUM 40 MG/0.4 ML SYRINGE SQ SCH (17:56)
[2016-12-21] MEDS: MAGNESIUM HYDROXIDE SUSP 30 ML CUP PO PRN (20:04)
[2016-12-22] VITALS: BP 122/67; PULSE 100; RESP 16; TEMP 100; O2SAT 95
[2016-12-22] MEDS: MORPHINE SULFATE 4 MG/ML INJ IV PUSH PRN (00:07)
[2016-12-22] MEDS: ACETAMINOPHEN/HYDROcodone 325 MG/10 MG TAB PO PRN ×4 (02:48→21:58)
[2016-12-22] MEDS: CYCLOBENZAPRINE HCL 10 MG TAB PO PRN ×3 (02:49→17:38)
[2016-12-22] MEDS: NS + KCL 20 MEQ INJ 1,000 ML IV SCH ×2 (02:50→15:45)
[2016-12-22 04:00] VITALS: BP 109/59; PULSE 98; RESP 16; TEMP 98.4; O2SAT 96
[2016-12-22 07:58] LABS: AUTOMATED NEUTROPHIL # 2.1 TH/MM3 (1.8-7.7); BASOPHIL % 0.5 % (0.0-2.0); EOSINOPHIL # 0.1 TH/MM3 (0-0.4); EOSINOPHIL % 1.6 % (0.0-4.0); HEMATOCRIT 27.5 % (35.0-46.0); HEMO FLAGS DIFF FINAL; LYMPHOCYTE # 1.5 TH/MM3 (1.0-4.8); MEAN CELL VOLUME 98.4 FL (80.0-100.0); MEAN CORPUSCULAR HGB CONC 33.5 % (32.0-36.0); MONO % 6.8 % (0.0-8.0); NEUT % 53.1 % (16.0-70.0); PLATELET COUNT 155 TH/MM3 (150-450); RED CELL DISTRIBUTION WIDTH 14.3 % (11.6-17.2)
[2016-12-22 08:00] VITALS: BP 126/68; PULSE 96; RESP 16; TEMP 99.1; O2SAT 94
[2016-12-22 08:15] LABS: POTASSIUM 4.3 MEQ/L (3.5-5.1)
[2016-12-22] MEDS: MULTIVITAMINS/MINERALS THERAPEUTIC TAB PO SCH (08:37)
[2016-12-22] MEDS: NICOTINE 21 MG/24 HR PATCH T-DERMAL SCH (08:37)
[2016-12-22] MEDS: REMOVE OLD PATCH T-DERMAL SCH (08:37)
[2016-12-22] MEDS: DOCUSATE SODIUM 50 MG/SENNA 8.6 MG TAB PO SCH ×2 (08:37→20:34)
[2016-12-22] MEDS: diphenhydrAMINE HCL 25 MG CAP PO PRN (08:40)
[2016-12-22] MEDS: SODIUM CHLORIDE 0.9% FLUSH 5 ML FLUSH IVF SCH ×2 (08:45→20:35)
--- NOTE | 2016-12-22 11:13 | HHI.PR ---
Subjective Remarks LATE ENTRY: Patient seen 12/21/16 at ~1145 AM. Follow up elevated blood pressure, leg fracture. Patient states that the pain medication is only partly effective. She is requesting nicotine patch. No chest pain, dyspnea. Objective Vitals Vital Signs Date Time Temp Pulse Resp B/P Pulse Ox O2 Delivery O2 Flow Rate FiO2 12/22/16 08:00 99.1 96 16 126/68 94 12/22/16 04:00 98.4 98 16 109/59 96 12/22/16 00:00 100.0 100 16 122/67 95 12/21/16 20:00 100.8 106 17 139/64 97 12/21/16 19:09 Room Air 12/21/16 16:00 100.7 106 18 133/79 97 12/21/16 12:00 100.1 103 18 147/78 98 I/O 12/21/16 12/21/16 12/21/16 12/22/16 12/22/16 12/22/16 06:59 14:59 22:59 06:59 14:59 22:59 Intake Total 1303 ml 2418 ml 1390 ml Output Total 100 ml 1800 ml 550 ml Balance 1203 ml 618 ml 840 ml Intake Oral 480 ml 1080 ml 360 ml IV Total 823 ml 1338 ml 1030 ml Output Urine Total 100 ml 1800 ml 550 ml # Bowel Movements 0 0 Result Diagram: 12/22/16 0712 12/22/16 0712 Imaging Last Impressions Maxillofacial CT 12/20/16 0000 Signed Impressions: Service Date/Time: Tuesday, December 20, 2016 14:09 - CONCLUSION: 1. Right infraorbital soft tissue swelling. Arnol Bee Jr., MD Hip and Pelvis X-Ray 12/20/16 0000 Signed Impressions: Service Date/Time: Tuesday, December 20, 2016 12:15 - CONCLUSION: Fracture of distal femur not identified on this examination and the hip appears intact. Gómez Clemons MD Head CT 12/20/16 0000 Signed Impressions: Service Date/Time: Tuesday, December 20, 2016 14:05 - CONCLUSION: 1. No acute intracranial abnormality. Kenny Byrd MD Femur X-Ray 12/20/16 0000 Signed Impressions: Service Date/Time: Tuesday, December 20, 2016 18:48 - CONCLUSION: Intraoperative images Arnlo Richmond MD Chest X-Ray 12/20/16 0000 Signed Impressions: Service Date/Time: Tuesday, December 20, 2016 12:07 - CONCLUSION: No acute cardiopulmonary disease. Gómez Clemons MD Cervical Spine CT 12/20/16 0000 Signed Impressions: Service Date/Time: Tuesday, December 20, 2016 14:05 - CONCLUSION: 1. Subtle anterolisthesis of C5 on C6, likely degenerative. Flexion and extension views may be obtained if there is clinical concern regarding ligamentous instability. 2. Otherwise, no acute fracture or subluxation. Kenny Byrd MD Objective Remarks General: No acute distress. Sitting up in a chair. HEENT: Contusion and swelling of the right periorbital region slightly decreased. Heart: Regular rate and rhythm. No murmur. Lungs: Clear to auscultation bilaterally. No wheezes, rales, or rhonchi. Breathing is nonlabored. Abdomen: Soft, nontender, nondistended. Extremities: Left leg in an immobilizer splint. Psych: Alert and oriented. Urinary Catheter: No Vascular Central Line Catheter: No A/P Problem List: (1) Femur fracture, left ICD Code: S72.92XA Status: Acute (2) Tobacco abuse ICD Code: Z72.0 Status: Acute (3) Elevated blood pressure reading without diagnosis of hypertension ICD Code: R03.0 Status: Resolved (4) Postoperative anemia due to acute blood loss ICD Code: D62 Status: Acute (5) Facial contusion ICD Code: S00.83XA Status: Acute (6) Anxiety ICD Code: F41.9 Status: Acute Assessment and Plan 1. Left distal femur fracture status post fall at home: Appreciate orthopedic surgery recommendations. Status post surgical repair. Continue pain control, immobilizer splint. 2. Right-sided facial contusion: Patient reported that she fell 2 days prior to admission and also believes that she hit the same area on her most recent fall. Improving. 3. Elevated blood pressure: Patient denies history of hypertension. This is likely secondary to pain. Clonidine as needed. 4. Tobacco abuse: Counseled quit smoking. Nicotine patch. 5. Postoperative anemia: Secondary to acute blood loss. Monitor H&H. Transfuse if necessary. 6. DVT prophylaxis: Lovenox. Problem Qualifiers (1) Femur fracture, left: Qualified Code: S72.442A - Closed displaced fracture of distal epiphysis of left femur, initial encounter Obdulio Luu MD Dec 22, 2016 11:13
--- NOTE | 2016-12-22 11:16 | HHI.PR ---
Subjective Remarks Follow-up anemia. Patient has been very anxious this morning. She is tearful and states that she has been arguing with her . Pain control is adequate at this time. Denies diarrhea or constipation. Denies chest pain or dyspnea. Objective Vitals Vital Signs Date Time Temp Pulse Resp B/P Pulse Ox O2 Delivery O2 Flow Rate FiO2 12/22/16 08:00 99.1 96 16 126/68 94 12/22/16 04:00 98.4 98 16 109/59 96 12/22/16 00:00 100.0 100 16 122/67 95 12/21/16 20:00 100.8 106 17 139/64 97 12/21/16 19:09 Room Air 12/21/16 16:00 100.7 106 18 133/79 97 12/21/16 12:00 100.1 103 18 147/78 98 I/O 12/21/16 12/21/16 12/21/16 12/22/16 12/22/16 12/22/16 06:59 14:59 22:59 06:59 14:59 22:59 Intake Total 1303 ml 2418 ml 1390 ml Output Total 100 ml 1800 ml 550 ml Balance 1203 ml 618 ml 840 ml Intake Oral 480 ml 1080 ml 360 ml IV Total 823 ml 1338 ml 1030 ml Output Urine Total 100 ml 1800 ml 550 ml # Bowel Movements 0 0 Result Diagram: 12/22/16 0712 12/22/16 0712 Imaging Last Impressions Maxillofacial CT 12/20/16 0000 Signed Impressions: Service Date/Time: Tuesday, December 20, 2016 14:09 - CONCLUSION: 1. Right infraorbital soft tissue swelling. Arnol Bee Jr., MD Hip and Pelvis X-Ray 12/20/16 0000 Signed Impressions: Service Date/Time: Tuesday, December 20, 2016 12:15 - CONCLUSION: Fracture of distal femur not identified on this examination and the hip appears intact. Gómez Clemons MD Head CT 12/20/16 0000 Signed Impressions: Service Date/Time: Tuesday, December 20, 2016 14:05 - CONCLUSION: 1. No acute intracranial abnormality. Kenny Byrd MD Femur X-Ray 12/20/16 0000 Signed Impressions: Service Date/Time: Tuesday, December 20, 2016 18:48 - CONCLUSION: Intraoperative images Arnol Richmond MD Chest X-Ray 12/20/16 0000 Signed Impressions: Service Date/Time: Tuesday, December 20, 2016 12:07 - CONCLUSION: No acute cardiopulmonary disease. Gómez Clemons MD Cervical Spine CT 12/20/16 0000 Signed Impressions: Service Date/Time: Tuesday, December 20, 2016 14:05 - CONCLUSION: 1. Subtle anterolisthesis of C5 on C6, likely degenerative. Flexion and extension views may be obtained if there is clinical concern regarding ligamentous instability. 2. Otherwise, no acute fracture or subluxation. Kenny Byrd MD Objective Remarks General: No acute distress. HEENT: Contusion and swelling of the right periorbital region improving. Heart: Regular rate and rhythm. No murmur. Lungs: Clear to auscultation bilaterally. No wheezes, rales, or rhonchi. Breathing is nonlabored. Abdomen: Soft, nontender, nondistended. Extremities: Left leg in an immobilizer splint. Psych: Alert and oriented. Tearful. Procedures 12/20/16 Open reduction internal fixation of left distal femur fracture Urinary Catheter: No Vascular Central Line Catheter: No A/P Problem List: (1) Femur fracture, left ICD Code: S72.92XA Status: Acute (2) Tobacco abuse ICD Code: Z72.0 Status: Acute (3) Elevated blood pressure reading without diagnosis of hypertension ICD Code: R03.0 Status: Resolved (4) Postoperative anemia due to acute blood loss ICD Code: D62 Status: Acute (5) Facial contusion ICD Code: S00.83XA Status: Acute (6) Anxiety ICD Code: F41.9 Status: Acute Assessment and Plan 1. Left distal femur fracture status post fall at home: Appreciate orthopedic surgery recommendations. Status post surgical repair. Continue pain control, immobilizer splint. 2. Right-sided facial contusion: Patient reported that she fell 2 days prior to admission and also believes that she hit the same area on her most recent fall. Improving. 3. Elevated blood pressure: Patient denies history of hypertension. This is likely secondary to pain. Clonidine as needed. 4. Tobacco abuse: Counseled to quit smoking. Continue Nicotine patch. 5. Postoperative anemia: Secondary to acute blood loss. H&H low, but remained stable overnight. Recheck labs in the morning. 6. DVT prophylaxis: Lovenox. Problem Qualifiers (1) Femur fracture, left: Qualified Code: S72.442A - Closed displaced fracture of distal epiphysis of left femur, initial encounter Obdulio Luu MD Dec 22, 2016 11:16
[2016-12-22 12:50] VITALS: BP 123/67; PULSE 99; RESP 16; TEMP 98.6; O2SAT 95
[2016-12-22] MEDS: LORazepam 0.5 MG TAB PO PRN (13:56)
--- NOTE | 2016-12-22 14:37 | PD.ORT.PN ---
Subjective Post Op Day #: 2 Subjective Remarks Patient is resting in bed with decreased pain to the left knee. Objective Vitals Vital Signs Date Time Temp Pulse Resp B/P Pulse Ox O2 Delivery O2 Flow Rate FiO2 12/22/16 12:50 98.6 99 16 123/67 95 12/22/16 08:00 99.1 96 16 126/68 94 12/22/16 04:00 98.4 98 16 109/59 96 12/22/16 00:00 100.0 100 16 122/67 95 12/21/16 20:00 100.8 106 17 139/64 97 12/21/16 19:09 Room Air 12/21/16 16:00 100.7 106 18 133/79 97 I/O 12/21/16 12/21/16 12/21/16 12/22/16 12/22/16 12/22/16 06:59 14:59 22:59 06:59 14:59 22:59 Intake Total 1303 ml 2418 ml 1390 ml Output Total 100 ml 1800 ml 550 ml Balance 1203 ml 618 ml 840 ml Intake Oral 480 ml 1080 ml 360 ml IV Total 823 ml 1338 ml 1030 ml Output Urine Total 100 ml 1800 ml 550 ml # Bowel Movements 0 0 Result Diagram: 12/22/1612 12/22/16711 Procedures Left distal femur supracondylar, intraarticular fracture with ORIF Objective Remarks The patient's dressing changed with no drainage. Incision is well approximated with surgical clips intact. No redness or s/s of infection. Patient is wearing her knee immobilizer. EHL/TA/G are intact. 2+ pedal pulse. Calf is soft and nontender. + SILT. Patient c/o pain to the lateral aspect of the left ankle. Assessment & Plan Ortho Post Op Day #: 2 Problem List: Assessment and Plan POD #2: Left distal femur supracondylar, intraarticular fracture with ORIF 1. The patient will be NWB on the LLE 2. Continue with the knee immobilizer to restrict early range of motion and allow for healing 3. Daily dressing changes 4. Ice to the left knee PRN 5. Lovenox for 10 days followed by ASA 325 mg PO daily for 30 days for DVT prophylaxis 6. F/U with Dr. Vanegas or Kota MONROE in the office in 1-2 weeks. 7. Will order an x-ray of the left ankle to r/o fracture secondary to pain and tenderness Harjeet Lees Dec 22, 2016 14:37
--- NOTE | 2016-12-22 15:14 | RADRPT ---
EXAM DATE/TIME: 12/22/2016 14:41 [facility] COMPARISON: No previous studies available for comparison. INDICATIONS : Fracture. MEDICAL HISTORY : None. SURGICAL HISTORY : None. ENCOUNTER: Initial ACUITY: 2 days PAIN SCORE: 8/10 LOCATION: Left ankle FINDINGS: Mild degenerative changes are evident. There is no acute fracture or dislocation. Minimal plantar s purring is evident.. CONCLUSION: Mild degenerative changes. Sean Chu MD FACR on December 22, 2016 at 15:11 Board Certified Radiologist. This report was verified electronically.
[2016-12-22] MEDS: MAGNESIUM HYDROXIDE SUSP 30 ML CUP PO PRN (15:39)
[2016-12-22] MEDS: SENNOSIDES 8.6 MG TAB PO PRN (15:39)
[2016-12-22 16:00] VITALS: BP 127/67; PULSE 111; RESP 16; TEMP 100.6; O2SAT 96
[2016-12-22] MEDS: ENOXAPARIN SODIUM 40 MG/0.4 ML SYRINGE SQ SCH (19:00)
[2016-12-22 20:00] VITALS: BP 123/68; PULSE 105; RESP 19; TEMP 99.5; O2SAT 95
[2016-12-23] VITALS: BP 103/59; PULSE 100; RESP 18; TEMP 98.6; O2SAT 96
[2016-12-23] MEDS: ACETAMINOPHEN/HYDROcodone 325 MG/10 MG TAB PO PRN ×4 (05:06→17:45)
[2016-12-23] MEDS: MAGNESIUM HYDROXIDE SUSP 30 ML CUP PO PRN (05:06)
[2016-12-23] MEDS: CYCLOBENZAPRINE HCL 10 MG TAB PO PRN ×3 (05:10→21:00)
[2016-12-23] MEDS: NS + KCL 20 MEQ INJ 1,000 ML IV SCH ×3 (05:11→15:16)
[2016-12-23 07:39] VITALS: BP 117/59; PULSE 104; RESP 18; TEMP 99.2; O2SAT 96
[2016-12-23] MEDS: SODIUM CHLORIDE 0.9% FLUSH 5 ML FLUSH IVF SCH ×2 (09:00→20:58)
[2016-12-23] MEDS: REMOVE OLD PATCH T-DERMAL SCH (09:00)
[2016-12-23] MEDS: DOCUSATE SODIUM 50 MG/SENNA 8.6 MG TAB PO SCH ×2 (11:01→20:57)
[2016-12-23] MEDS: MULTIVITAMINS/MINERALS THERAPEUTIC TAB PO SCH (11:01)
[2016-12-23] MEDS: NICOTINE 21 MG/24 HR PATCH T-DERMAL SCH (11:02)
--- NOTE | 2016-12-23 11:16 | HHI.PR ---
Subjective Remarks Follow up anemia, anxiety. Patient states that her anxiety is better today. Pain is adequately controlled. No chest pain, dyspnea, nausea, vomiting. Had small BM today. Objective Vitals Vital Signs Date Time Temp Pulse Resp B/P Pulse Ox O2 Delivery O2 Flow Rate FiO2 12/23/16 07:39 99.2 104 18 117/59 96 12/23/16 00:00 98.6 100 18 103/59 96 12/22/16 20:00 99.5 105 19 123/68 95 12/22/16 16:00 100.6 111 16 127/67 96 12/22/16 12:50 98.6 99 16 123/67 95 I/O 12/22/16 12/22/16 12/22/16 12/23/16 12/23/16 12/23/16 07:00 15:00 23:00 07:00 15:00 23:00 Intake Total 1390 ml 600 ml 480 ml 800 ml 600 ml Output Total 550 ml Balance 840 ml 600 ml 480 ml 800 ml 600 ml Intake Oral 360 ml 600 ml 480 ml 600 ml IV Total 1030 ml 800 ml Output Urine Total 550 ml # Voids 2 1 2 # Bowel Movements 0 0 1 1 Result Diagram: 12/22/16 0712 12/22/16 0712 Imaging Last Impressions Ankle X-Ray 12/22/16 0000 Signed Impressions: Service Date/Time: Thursday, December 22, 2016 14:41 - CONCLUSION: Mild degenerative changes. Sean Chu MD FACR Maxillofacial CT 12/20/16 0000 Signed Impressions: Service Date/Time: Tuesday, December 20, 2016 14:09 - CONCLUSION: 1. Right infraorbital soft tissue swelling. Arnol Bee Jr., MD Hip and Pelvis X-Ray 12/20/16 0000 Signed Impressions: Service Date/Time: Tuesday, December 20, 2016 12:15 - CONCLUSION: Fracture of distal femur not identified on this examination and the hip appears intact. Gómez Clemons MD Head CT 12/20/16 0000 Signed Impressions: Service Date/Time: Tuesday, December 20, 2016 14:05 - CONCLUSION: 1. No acute intracranial abnormality. Kenny Byrd MD Femur X-Ray 12/20/16 0000 Signed Impressions: Service Date/Time: Tuesday, December 20, 2016 18:48 - CONCLUSION: Intraoperative images Arnol Richmond MD Chest X-Ray 12/20/16 0000 Signed Impressions: Service Date/Time: Tuesday, December 20, 2016 12:07 - CONCLUSION: No acute cardiopulmonary disease. Gómez Clemons MD Cervical Spine CT 12/20/16 0000 Signed Impressions: Service Date/Time: Tuesday, December 20, 2016 14:05 - CONCLUSION: 1. Subtle anterolisthesis of C5 on C6, likely degenerative. Flexion and extension views may be obtained if there is clinical concern regarding ligamentous instability. 2. Otherwise, no acute fracture or subluxation. Kenny Byrd MD Objective Remarks General: No acute distress. Sitting up in a chair. HEENT: Contusion and swelling of the right periorbital region are improving. Heart: Regular rate and rhythm. No murmur. Lungs: Clear to auscultation bilaterally. No wheezes, rales, or rhonchi. Breathing is nonlabored. Abdomen: Soft, nontender, nondistended. Extremities: Left leg in an immobilizer splint. Psych: Alert and oriented. Procedures 12/20/16 Open reduction internal fixation of left distal femur fracture Urinary Catheter: No Vascular Central Line Catheter: No A/P Problem List: (1) Femur fracture, left ICD Code: S72.92XA Status: Acute (2) Tobacco abuse ICD Code: Z72.0 Status: Acute (3) Elevated blood pressure reading without diagnosis of hypertension ICD Code: R03.0 Status: Resolved (4) Postoperative anemia due to acute blood loss ICD Code: D62 Status: Acute (5) Facial contusion ICD Code: S00.83XA Status: Acute (6) Anxiety ICD Code: F41.9 Status: Acute Assessment and Plan 1. Left distal femur fracture status post fall at home: Appreciate orthopedic surgery recommendations. Status post surgical repair. Continue pain control, immobilizer splint. 2. Right-sided facial contusion: Patient reported that she fell 2 days prior to admission and also believes that she hit the same area on her most recent fall. Improving. 3. Elevated blood pressure: Patient denies history of hypertension. This is likely secondary to pain. Clonidine as needed. BP now improved. 4. Tobacco abuse: Counseled to quit smoking. Continue Nicotine patch. 5. Postoperative anemia: Secondary to acute blood loss. H&H low, but stable. Repeat labs ordered. 6. DVT prophylaxis: Lovenox. Discharge Planning PT recommending inpatient rehab. Case management assisting with discharge planning. Plan for discharge when cleared by orthopedic surgery. Problem Qualifiers (1) Femur fracture, left: Qualified Code: S72.442A - Closed displaced fracture of distal epiphysis of left femur, initial encounter Obdulio Luu MD Dec 23, 2016 11:16
[2016-12-23 11:27] VITALS: BP 105/59; PULSE 101; RESP 18; TEMP 96.3; O2SAT 96
--- NOTE | 2016-12-23 11:50 | PD.ORT.PN ---
Subjective Post Op Day #: 3 Subjective Remarks Patient is OOB in chair with continued improvement in left knee pain. Patient notes mild left ankle pain. Patient denies fevers, chills, tingling, or numbness. Objective Vitals Vital Signs Date Time Temp Pulse Resp B/P Pulse Ox O2 Delivery O2 Flow Rate FiO2 12/23/16 11:27 96.3 101 18 105/59 96 12/23/16 07:39 99.2 104 18 117/59 96 12/23/16 00:00 98.6 100 18 103/59 96 12/22/16 20:00 99.5 105 19 123/68 95 12/22/16 16:00 100.6 111 16 127/67 96 12/22/16 12:50 98.6 99 16 123/67 95 I/O 12/22/16 12/22/16 12/22/16 12/23/16 12/23/16 12/23/16 07:00 15:00 23:00 07:00 15:00 23:00 Intake Total 1390 ml 600 ml 480 ml 800 ml 600 ml Output Total 550 ml Balance 840 ml 600 ml 480 ml 800 ml 600 ml Intake Oral 360 ml 600 ml 480 ml 600 ml IV Total 1030 ml 800 ml Output Urine Total 550 ml # Voids 2 1 2 # Bowel Movements 0 0 1 1 Result Diagram: 12/22/1612 12/22/1612 Procedures Left distal femur supracondylar, intraarticular fracture with ORIF Objective Remarks Last 48 hours Impressions Ankle X-Ray 12/22/16 0000 Signed Impressions: Service Date/Time: Thursday, December 22, 2016 14:41 - CONCLUSION: Mild degenerative changes. Sean Chu MD FACR The patient's dressing is C/D/I. Patient is wearing her knee immobilizer. EHL/ TA/G are intact. 2+ pedal pulse. Calf is soft and nontender. + SILT. Mild tenderness to the lateral aspect of the left ankle. Ankle AROM mildly limited. No swelling to the left ankle. I reviewed the images of the left ankle. I agree with the radiologist's interpretation. There is no obvious fracture. Mild degenerative changes with cyst formation of lateral malleolus. Assessment & Plan Ortho Post Op Day #: 3 Problem List: Assessment and Plan POD #3: Left distal femur supracondylar, intraarticular fracture with ORIF Left ankle mild degenerative change 1. The patient will be NWB on the LLE 2. Continue with the knee immobilizer to restrict early range of motion and allow for healing 3. Daily dressing changes 4. Ice to the left knee PRN 5. Lovenox for 10 days followed by ASA 325 mg PO daily for 30 days for DVT prophylaxis 6. F/U with Dr. Vanegas or Kota MONROE in the office in 1-2 weeks. 7. XR of the left ankle is negative for fracture. Patient has mild degenerative change and small cyst. Harjeet Lees Dec 23, 2016 11:50
[2016-12-23] MEDS: LORazepam 0.5 MG TAB PO PRN ×3 (12:22→21:00)
[2016-12-23 15:28] VITALS: BP 137/87; PULSE 106; RESP 18; TEMP 96.5; O2SAT 95
[2016-12-23] MEDS: ENOXAPARIN SODIUM 40 MG/0.4 ML SYRINGE SQ SCH (17:45)
[2016-12-23 20:35] VITALS: BP 103/61; PULSE 95; RESP 17; TEMP 98.1; O2SAT 98
[2016-12-24] VITALS (9 sets, daily range): BP systolic 101–160; BP diastolic 60–75; PULSE 86–102; RESP 17–19; TEMP 96–98.5; O2SAT 93–100
[2016-12-24] MEDS: ACETAMINOPHEN/HYDROcodone 325 MG/10 MG TAB PO PRN ×3 (00:51→17:26)
[2016-12-24] MEDS: NS + KCL 20 MEQ INJ 1,000 ML IV SCH ×2 (06:00→16:00)
[2016-12-24] MEDS: SODIUM CHLORIDE 0.9% FLUSH 5 ML FLUSH IVF SCH ×2 (09:00→21:00)
[2016-12-24] MEDS: DOCUSATE SODIUM 50 MG/SENNA 8.6 MG TAB PO SCH ×2 (09:00→21:45)
[2016-12-24] MEDS: REMOVE OLD PATCH T-DERMAL SCH (09:00)
[2016-12-24] MEDS: MULTIVITAMINS/MINERALS THERAPEUTIC TAB PO SCH (09:13)
[2016-12-24] MEDS: NICOTINE 21 MG/24 HR PATCH T-DERMAL SCH (09:13)
[2016-12-24] MEDS: CYCLOBENZAPRINE HCL 10 MG TAB PO PRN ×2 (09:16→17:26)
[2016-12-24 11:46] LABS: AUTOMATED NEUTROPHIL # 1.4 TH/MM3 (1.8-7.7); BASOPHIL % 0.4 % (0.0-2.0); EOSINOPHIL # 0.1 TH/MM3 (0-0.4); EOSINOPHIL % 4.5 % (0.0-4.0); HEMATOCRIT 22.3 % (35.0-46.0); HEMO FLAGS DIFF FINAL; LYMPH % 38.9 % (9.0-44.0); LYMPHOCYTE # 1.1 TH/MM3 (1.0-4.8); MEAN CELL VOLUME 98.6 FL (80.0-100.0); MEAN CORPUSCULAR HGB CONC 33.4 % (32.0-36.0); MONO % 7.3 % (0.0-8.0); NEUT % 48.9 % (16.0-70.0); PLATELET COUNT 155 TH/MM3 (150-450); RED BLOOD COUNT 2.26 MIL/MM3 (4.00-5.30); RED CELL DISTRIBUTION WIDTH 14.3 % (11.6-17.2); WHITE BLOOD COUNT 2.9 TH/MM3 (4.0-11.0)
--- NOTE | 2016-12-24 11:57 | HHI.PR ---
Subjective Remarks Follow up for left femur fracture. Patient is doing well. However, she wants to go to a rehab in [place] if possible. She also reports some left sided facial pain and hematoma. She sustained injury at home when she fell face down. Objective Vitals Vital Signs Date Time Temp Pulse Resp B/P Pulse Ox O2 Delivery O2 Flow Rate FiO2 12/24/16 07:40 96.4 86 19 101/60 93 12/24/16 04:50 98.5 101 17 124/65 94 12/24/16 04:00 Room Air 12/24/16 00:50 97.5 99 17 160/75 95 12/24/16 00:00 Room Air 12/23/16 20:35 98.1 95 17 103/61 98 12/23/16 20:00 Room Air 12/23/16 15:28 96.5 106 18 137/87 95 I/O 12/23/16 12/23/16 12/23/16 12/24/16 12/24/16 12/24/16 07:00 15:00 23:00 07:00 15:00 23:00 Intake Total 800 ml 2066 ml 1301 ml 1178 ml Balance 800 ml 2066 ml 1301 ml 1178 ml Intake Oral 1350 ml 480 ml 480 ml IV Total 800 ml 716 ml 821 ml 698 ml # Voids 5 4 3 # Bowel Movements 1 2 2 2 Result Diagram: 12/22/16 0712 12/22/16 0712 Imaging Last Impressions Ankle X-Ray 12/22/16 0000 Signed Impressions: Service Date/Time: Thursday, December 22, 2016 14:41 - CONCLUSION: Mild degenerative changes. Sean Chu MD FACR Maxillofacial CT 12/20/16 0000 Signed Impressions: Service Date/Time: Tuesday, December 20, 2016 14:09 - CONCLUSION: 1. Right infraorbital soft tissue swelling. Arnol Bee Jr., MD Hip and Pelvis X-Ray 12/20/16 0000 Signed Impressions: Service Date/Time: Tuesday, December 20, 2016 12:15 - CONCLUSION: Fracture of distal femur not identified on this examination and the hip appears intact. Gómez Clemons MD Head CT 12/20/16 0000 Signed Impressions: Service Date/Time: Tuesday, December 20, 2016 14:05 - CONCLUSION: 1. No acute intracranial abnormality. Kenny Byrd MD Femur X-Ray 12/20/16 0000 Signed Impressions: Service Date/Time: Tuesday, December 20, 2016 18:48 - CONCLUSION: Intraoperative images Arnol Richmond MD Chest X-Ray 12/20/16 0000 Signed Impressions: Service Date/Time: Tuesday, December 20, 2016 12:07 - CONCLUSION: No acute cardiopulmonary disease. Gómez Clemons MD Cervical Spine CT 12/20/16 0000 Signed Impressions: Service Date/Time: Tuesday, December 20, 2016 14:05 - CONCLUSION: 1. Subtle anterolisthesis of C5 on C6, likely degenerative. Flexion and extension views may be obtained if there is clinical concern regarding ligamentous instability. 2. Otherwise, no acute fracture or subluxation. Kenny Byrd MD Objective Remarks GENERAL: AOX3, NAD SKIN: Warm and dry. HEAD: Normocephalic. Left sided facial pain, hematoma. No erythema, no drainage. EYES: No scleral icterus. No injection or drainage. NECK: Supple, trachea midline. No JVD or lymphadenopathy. CARDIOVASCULAR: Regular rate and rhythm without murmurs, gallops, or rubs. RESPIRATORY: Breath sounds equal bilaterally. No accessory muscle use. GASTROINTESTINAL: Abdomen soft, non-tender, nondistended. MUSCULOSKELETAL: No cyanosis, or edema. BACK: Nontender without obvious deformity. No CVA tenderness. Procedures 12/20/16 Open reduction internal fixation of left distal femur fracture A/P Problem List: (1) Femur fracture, left ICD Code: S72.92XA Status: Acute (2) Tobacco abuse ICD Code: Z72.0 Status: Acute (3) Elevated blood pressure reading without diagnosis of hypertension ICD Code: R03.0 Status: Resolved (4) Postoperative anemia due to acute blood loss ICD Code: D62 Status: Acute (5) Facial contusion ICD Code: S00.83XA Status: Acute (6) Anxiety ICD Code: F41.9 Status: Acute Assessment and Plan 1. Left distal femur fracture status post fall at home: Appreciate orthopedic surgery recommendations. Status post surgical repair. Continue pain control, immobilizer splint. 2. Right-sided facial contusion: Patient reported that she fell 2 days prior to admission and also believes that she hit the same area on her most recent fall. Improving. 3. Elevated blood pressure: Patient denies history of hypertension. This is likely secondary to pain. Clonidine as needed. BP now improved. 4. Tobacco abuse: Counseled to quit smoking. Continue Nicotine patch. 5. Postoperative anemia: Secondary to acute blood loss. H&H low, but stable. Repeat labs ordered. 6. DVT prophylaxis: Lovenox. Discharge plan: It was not clear if patient wants to go home with outpatient PT or SNF. SNF choices are very limited due to insurance. Patient wants to go to a rehab in [place]. Unfortunately, that would not be possible due to insurance constraints. Discussed with PT. Patient can likely be discharged home on 12/25/2016 with outpatient PT if patient agrees. Problem Qualifiers (1) Femur fracture, left: Qualified Code: S72.442A - Closed displaced fracture of distal epiphysis of left femur, initial encounter Kirk Adkins DO Dec 24, 2016 11:57
[2016-12-24] MEDS ORDERED: XARE20TA PO (12:22)
[2016-12-24] MEDS: LORazepam 0.5 MG TAB PO PRN ×2 (12:59→21:44)
[2016-12-24] MEDS: diphenhydrAMINE HCL 25 MG CAP PO PRN (13:02)
[2016-12-24] MEDS: ENOXAPARIN SODIUM 40 MG/0.4 ML SYRINGE SQ SCH (18:45)
[2016-12-24] MEDS ORDERED: MECLIZINE HCL 25 MG TAB PO ONE (22:45)
[2016-12-25] MEDS: ACETAMINOPHEN/HYDROcodone 325 MG/10 MG TAB PO PRN ×5 (00:43→23:09)
[2016-12-25] MEDS: NS + KCL 20 MEQ INJ 1,000 ML IV SCH ×3 (02:00→22:00)
[2016-12-25 04:13] VITALS: BP 117/56; PULSE 81; RESP 17; TEMP 97.1; O2SAT 95
[2016-12-25] MEDS: LORazepam 0.5 MG TAB PO PRN ×2 (06:10→23:09)
[2016-12-25] MEDS: CYCLOBENZAPRINE HCL 10 MG TAB PO PRN ×2 (06:10→17:45)
[2016-12-25 08:00] VITALS: BP 133/71; PULSE 84; RESP 16; TEMP 96.6; O2SAT 97
[2016-12-25] MEDS: SODIUM CHLORIDE 0.9% FLUSH 5 ML FLUSH IVF SCH ×2 (08:44→23:09)
[2016-12-25] MEDS: NICOTINE 21 MG/24 HR PATCH T-DERMAL SCH (08:44)
[2016-12-25] MEDS: DOCUSATE SODIUM 50 MG/SENNA 8.6 MG TAB PO SCH ×2 (08:44→23:08)
[2016-12-25] MEDS: MULTIVITAMINS/MINERALS THERAPEUTIC TAB PO SCH (08:44)
[2016-12-25] MEDS: REMOVE OLD PATCH T-DERMAL SCH (08:44)
--- NOTE | 2016-12-25 11:00 | HHI.PR ---
Subjective Remarks This is a 56-year-old female with a past medical history significant for anxiety , depression, chronic back pain and osteoarthritis who presents to [facility] ED with complaints of left leg pain status post a fall she sustained at home earlier today and was found to have a distal femur fracture. Patient reports she tripped on the steps coming out of her house and fell with her left leg up underneath her and felt a distinct pop. Patient believes she may have hit the right side of her face. Patient reports a history of falling a few days ago inside her home when she tripped over her feet after she had a few too many drinks in celebration of her anniversary injuring the right side of her face. She denies any loss of consciousness as a result of today's fall or the one that she sustained several days ago. Patient states that she is not an everyday drinker and in fact had not had any alcohol since 1987 up until 2 days ago. Presently, she is complaining of 6 out of 10 left leg pain. ED physician has already consulted or if it was tentatively planning take the patient back to the OR today. She has elevated blood pressure likely due to pain. Patient does not endorse a history of hypertension. Patient denies any headache or vision changes. She denies any cough shortness of breath or chest pain. She does endorse complaints of nausea which she thinks is from the pain medication. She denies any vomiting or abdominal pain. Denies any diarrhea, constipation or urinary difficulties. Objective Vitals Vital Signs Date Time Temp Pulse Resp B/P Pulse Ox O2 Delivery O2 Flow Rate FiO2 12/25/16 08:00 96.6 84 16 133/71 97 12/25/16 04:13 97.1 81 17 117/56 95 12/24/16 23:17 97.2 89 17 131/64 97 12/24/16 23:16 97.2 89 17 131/64 97 12/24/16 20:00 97.1 102 18 146/72 100 12/24/16 17:32 96 21 12/24/16 16:00 96.0 99 17 132/62 96 12/24/16 11:54 97.1 95 19 107/61 95 I/O 12/24/16 12/24/16 12/24/16 12/25/16 12/25/16 12/25/16 07:00 15:00 23:00 07:00 15:00 23:00 Intake Total 1178 ml 800 ml 240 ml 570 ml Balance 1178 ml 800 ml 240 ml 570 ml Intake Oral 480 ml 800 ml 240 ml 240 ml IV Total 698 ml Packed Cells 330 ml # Voids 3 2 1 3 # Bowel Movements 2 1 0 Result Diagram: 12/24/16 1100 12/22/16 0712 Other Results Laboratory Tests Test 12/24/16 12/24/16 12/24/16 11:00 13:33 18:31 White Blood Count 2.9 TH/MM3 Red Blood Count 2.26 MIL/MM3 Hemoglobin 7.5 GM/DL Hematocrit 22.3 % Mean Corpuscular Volume 98.6 FL Mean Corpuscular Hemoglobin 33.0 PG Mean Corpuscular Hemoglobin 33.4 % Concent Red Cell Distribution Width 14.3 % Platelet Count 155 TH/MM3 Mean Platelet Volume 8.3 FL Neutrophils (%) (Auto) 48.9 % Lymphocytes (%) (Auto) 38.9 % Monocytes (%) (Auto) 7.3 % Eosinophils (%) (Auto) 4.5 % Basophils (%) (Auto) 0.4 % Neutrophils # (Auto) 1.4 TH/MM3 Lymphocytes # (Auto) 1.1 TH/MM3 Monocytes # (Auto) 0.2 TH/MM3 Eosinophils # (Auto) 0.1 TH/MM3 Basophils # (Auto) 0.0 TH/MM3 CBC Comment DIFF FINAL Differential Comment Blood Type O POSITIVE O POSITIVE Antibody Screen NEGATIVE Crossmatch Leukocyte-Reduced Red Blood Cells Blood Bank Comment Imaging Last Impressions Ankle X-Ray 12/22/16 0000 Signed Impressions: Service Date/Time: Thursday, December 22, 2016 14:41 - CONCLUSION: Mild degenerative changes. Sean Chu MD FACR Maxillofacial CT 12/20/16 0000 Signed Impressions: Service Date/Time: Tuesday, December 20, 2016 14:09 - CONCLUSION: 1. Right infraorbital soft tissue swelling. Arnol Bee Jr., MD Hip and Pelvis X-Ray 12/20/16 0000 Signed Impressions: Service Date/Time: Tuesday, December 20, 2016 12:15 - CONCLUSION: Fracture of distal femur not identified on this examination and the hip appears intact. Gómez Clemons MD Head CT 12/20/16 0000 Signed Impressions: Service Date/Time: Tuesday, December 20, 2016 14:05 - CONCLUSION: 1. No acute intracranial abnormality. Kenny Byrd MD Femur X-Ray 12/20/16 0000 Signed Impressions: Service Date/Time: Tuesday, December 20, 2016 18:48 - CONCLUSION: Intraoperative images Arnol Richmond MD Chest X-Ray 12/20/16 0000 Signed Impressions: Service Date/Time: Tuesday, December 20, 2016 12:07 - CONCLUSION: No acute cardiopulmonary disease. Gómez Clemons MD Cervical Spine CT 12/20/16 0000 Signed Impressions: Service Date/Time: Tuesday, December 20, 2016 14:05 - CONCLUSION: 1. Subtle anterolisthesis of C5 on C6, likely degenerative. Flexion and extension views may be obtained if there is clinical concern regarding ligamentous instability. 2. Otherwise, no acute fracture or subluxation. Kenny Byrd MD Objective Remarks GENERAL: AWAKE ALERT AND ORIENTED SKIN: Warm and dry. HEAD: Atraumatic. Normocephalic. EYES: Pupils equal and round. No scleral icterus. No injection or drainage. EOMI INTACT ENT: No nasal bleeding or discharge. Mucous membranes pink and moist. TONGUE MIDLINE NECK: Trachea midline. No JVD. CARDIOVASCULAR: Regular rate and rhythm. S1, S2 NO S3 OR S4 NO HEAVE OR THRILL OR RUB OR GALLOP RESPIRATORY: No accessory muscle use. Clear to auscultation. Breath sounds equal bilaterally. GASTROINTESTINAL: Abdomen soft, non-tender, nondistended. Hepatic and splenic margins not palpable. MUSCULOSKELETAL: Extremities without clubbing, cyanosis, or edema. No obvious deformities. LEFT LE IN BRACE- NEEDS TO LEARN HOW TO MOVE WELL WITHOUT PUTTING WEIGHT ON IT NEUROLOGICAL: Awake and alert. No obvious cranial nerve deficits. Motor grossly within normal limits. 4 out of 5 muscle strength in the arms and legs. Normal speech. PSYCHIATRIC: Appropriate mood and affect; insight and judgment normal. Procedures 12/20/16 Open reduction internal fixation of left distal femur fracture Medications and IVs Current Medications Medications (Trade) Dose Ordered Sig/Laverne Route Start Time Stop Time Status Last Admin (Tylenol) 650 mg Q4H PRN PO 12/20/16 16:00 (Milk Of Magnesia Liq) 30 ml Q12H PRN PO 12/20/16 16:00 12/23/16 05:06 (Senokot) 17.2 mg Q12H PRN PO 12/20/16 16:00 12/22/16 15:39 Active Medications Meclizine HCl (Antivert) 25 mg ONCE ONCE PO Last administered on 12/24/16t 23:12 ; Start 12/24/16 at 22:45; Stop 12/24/16 at 22:46; Status DC (Dulcolax Supp) 10 mg DAILY PRN RECTAL 12/20/16 16:00 (Lactulose Liq) 30 ml DAILY PRN PO 12/20/16 16:00 (NS Flush) 2 ml UNSCH PRN IVF 12/20/16 19:15 (NS Flush) 2 ml BID IVF 12/20/16 21:00 12/25/16 08:44 (Lovenox Inj) 40 mg Q24H SQ 12/21/16 19:00 12/30/16 19:01 12/24/16 18:45 (Debora-Colace) 1 tab BID PO 12/20/16 21:00 12/25/16 08:44 Miscellaneous Information UNSCH PRN XX 12/20/16 19:15 (Zofran Inj) 4 mg Q4H PRN IVP 12/20/16 19:15 12/21/16 08:27 (Theragran M Tab) 1 tab DAILY PO 12/21/16 09:00 12/25/16 08:44 (Benadryl) 25 mg Q6H PRN PO 12/20/16 19:15 12/24/16 13:02 (Narcan Inj) 0.4 mg UNSCH PRN IV 12/20/16 19:15 Morphine Sulfate 2 mg 2 mg Q3H PRN IV PUSH 12/20/16 19:15 12/22/16 00:07 (NS + KCl 20 Meq Inj) 1,000 ml @ 100 mls/hr Q10H IV 12/21/16 08:00 12/23/16 15:16 (Flexeril) 10 mg Q8H PRN PO 12/21/16 09:00 12/25/16 06:10 ([place] 10-325 Mg) 2 tab Q6H PRN PO 12/21/16 09:00 12/25/16 00:43 ([place] 10-325 Mg) 1 tab Q6HR PRN PO 12/21/16 11:56 12/25/16 09:00 (Habitrol 21 Mg Patch.24 Hr) 1 patch DAILY T-DERMAL 12/21/16 12:00 12/25/16 08:44 Miscellaneous Information 1 DAILY T-DERMAL 12/22/16 09:00 12/25/16 08:44 (Ativan) 0.5 mg Q8H PRN PO 12/22/16 13:00 12/25/16 06:10 Urinary Catheter: No Vascular Central Line Catheter: No A/P Problem List: (1) Femur fracture, left ICD Code: S72.92XA Status: Acute Plan: SP SURGERY ORIF (2) Tobacco abuse ICD Code: Z72.0 Status: Acute Plan: SMOKING CESSATION RECOMMENDED (3) Elevated blood pressure reading without diagnosis of hypertension ICD Code: R03.0 Status: Resolved Plan: MONITOR BLOOD PRESSURE (4) Postoperative anemia due to acute blood loss ICD Code: D62 Status: Acute Plan: CHECK LABS TODAY (5) Facial contusion ICD Code: S00.83XA Status: Acute Plan: PAIN CONTROL (6) Anxiety ICD Code: F41.9 Status: Acute Plan: HOME MEDS Assessment and Plan 1. Left distal femur fracture status post fall at home: Appreciate orthopedic surgery recommendations. Status post surgical repair. Continue pain control, immobilizer splint. 2. Right-sided facial contusion: Patient reported that she fell 2 days prior to admission and also believes that she hit the same area on her most recent fall. Improving. 3. Elevated blood pressure: Patient denies history of hypertension. This is likely secondary to pain. Clonidine as needed. BP now improved. 4. Tobacco abuse: Counseled to quit smoking. Continue Nicotine patch. 5. Postoperative anemia: Secondary to acute blood loss. H&H low, but stable. Repeat labs ordered. CHECK LABS TODAY 6. DVT prophylaxis: Lovenox. Discharge plan: It was not clear if patient wants to go home with outpatient PT or SNF. SNF choices are very limited due to insurance. Patient wants to go to a rehab in [place]. Unfortunately, that would not be possible due to insurance constraints. Discussed with PT. Patient can likely be discharged home on 12/26/2016 with outpatient PT if patient agrees. Problem Qualifiers (1) Femur fracture, left: Qualified Code: S72.442A - Closed displaced fracture of distal epiphysis of left femur, initial encounter Sean Landry DO Dec 25, 2016 11:00
[2016-12-25 12:00] VITALS: BP 123/72; PULSE 88; RESP 16; TEMP 97.8; O2SAT 93
[2016-12-25 16:00] VITALS: BP 122/69; PULSE 84; RESP 16; TEMP 97.4; O2SAT 96
[2016-12-25] MEDS: ENOXAPARIN SODIUM 40 MG/0.4 ML SYRINGE SQ SCH (18:58)
[2016-12-25 19:36] LABS: AUTOMATED NEUTROPHIL # 1.1 TH/MM3 (1.8-7.7); BASOPHIL % 0.6 % (0.0-2.0); EOSINOPHIL # 0.2 TH/MM3 (0-0.4); EOSINOPHIL % 5.7 % (0.0-4.0); HEMATOCRIT 28.8 % (35.0-46.0); HEMO FLAGS DIFF FINAL; LYMPH % 45.7 % (9.0-44.0); LYMPHOCYTE # 1.3 TH/MM3 (1.0-4.8); MEAN CORPUSCULAR HEMOGLOBIN 32.4 PG (27.0-34.0); MEAN CORPUSCULAR HGB CONC 34.1 % (32.0-36.0); MONO % 6.5 % (0.0-8.0); NEUT % 41.5 % (16.0-70.0); PLATELET COUNT 197 TH/MM3 (150-450); RED BLOOD COUNT 3.04 MIL/MM3 (4.00-5.30); WHITE BLOOD COUNT 2.8 TH/MM3 (4.0-11.0)
[2016-12-25 19:37] LABS: ANION GAP 7 MEQ/L (5-15); AST (GOT) 19 U/L (15-37); BICARBONATE 29.8 MEQ/L (21.0-32.0); BLOOD UREA NITROGEN 10 MG/DL (7-18); CHLORIDE 101 MEQ/L (98-107); GLOMERULAR FILTRATION RATE 137 ML/MIN (>89); MAGNESIUM 1.9 MG/DL (1.5-2.5); SODIUM (NA) 138 MEQ/L (136-145)
[2016-12-25 19:38] LABS: ALT (GPT) 12 U/L (10-53)
[2016-12-25 19:46] LABS: ALKALINE PHOSPHATASE 58 U/L (45-117); FREE T4 0.91 NG/DL (0.76-1.46); TOTAL BILIRUBIN ADULT 0.2 MG/DL (0.2-1.0)
[2016-12-25 20:15] VITALS: BP 131/73; PULSE 97; RESP 18; TEMP 98.1; O2SAT 96
[2016-12-26 00:05] VITALS: BP 127/73; PULSE 87; RESP 18; TEMP 97.8; O2SAT 98
[2016-12-26] MEDS: CYCLOBENZAPRINE HCL 10 MG TAB PO PRN ×2 (04:02→14:00)
[2016-12-26] MEDS: ACETAMINOPHEN/HYDROcodone 325 MG/10 MG TAB PO PRN ×3 (06:00→20:11)
[2016-12-26 08:00] VITALS: BP 117/69; PULSE 77; RESP 18; TEMP 96.3; O2SAT 95
[2016-12-26] MEDS: NS + KCL 20 MEQ INJ 1,000 ML IV SCH ×2 (08:00→18:00)
[2016-12-26 08:29] LABS: BASOPHIL % 0.5 % (0.0-2.0); EOSINOPHIL # 0.2 TH/MM3 (0-0.4); HEMATOCRIT 29.3 % (35.0-46.0); HEMO FLAGS DIFF FINAL; LYMPH % 49.8 % (9.0-44.0); LYMPHOCYTE # 1.3 TH/MM3 (1.0-4.8); MEAN CELL VOLUME 96.2 FL (80.0-100.0); MEAN CORPUSCULAR HEMOGLOBIN 31.2 PG (27.0-34.0); MEAN CORPUSCULAR HGB CONC 32.4 % (32.0-36.0); MONO % 6.7 % (0.0-8.0); PLATELET COUNT 218 TH/MM3 (150-450); RED BLOOD COUNT 3.05 MIL/MM3 (4.00-5.30); RED CELL DISTRIBUTION WIDTH 15.5 % (11.6-17.2); WHITE BLOOD COUNT 2.7 TH/MM3 (4.0-11.0)
[2016-12-26 08:48] LABS: ANION GAP 4 MEQ/L (5-15); AST (GOT) 16 U/L (15-37); BICARBONATE 33.6 MEQ/L (21.0-32.0); BLOOD UREA NITROGEN 11 MG/DL (7-18); CHLORIDE 101 MEQ/L (98-107); GLOMERULAR FILTRATION RATE 122 ML/MIN (>89); MAGNESIUM 1.9 MG/DL (1.5-2.5); POTASSIUM 4.4 MEQ/L (3.5-5.1); SODIUM (NA) 139 MEQ/L (136-145)
[2016-12-26 08:49] LABS: ALT (GPT) 11 U/L (10-53)
[2016-12-26 08:51] LABS: ALKALINE PHOSPHATASE 50 U/L (45-117); TOTAL BILIRUBIN ADULT 0.3 MG/DL (0.2-1.0)
[2016-12-26] MEDS: LORazepam 0.5 MG TAB PO PRN ×2 (08:59→17:10)
[2016-12-26] MEDS: DOCUSATE SODIUM 50 MG/SENNA 8.6 MG TAB PO SCH ×2 (09:00→20:09)
[2016-12-26] MEDS: SODIUM CHLORIDE 0.9% FLUSH 5 ML FLUSH IVF SCH ×2 (09:00→20:11)
[2016-12-26] MEDS: REMOVE OLD PATCH T-DERMAL SCH (09:00)
[2016-12-26] MEDS: NICOTINE 21 MG/24 HR PATCH T-DERMAL SCH (09:00)
[2016-12-26] MEDS: MULTIVITAMINS/MINERALS THERAPEUTIC TAB PO SCH (09:00)
[2016-12-26 12:00] VITALS: BP 99/60; PULSE 88; RESP 18; TEMP 96.7; O2SAT 94
[2016-12-26 13:01] LABS: HEMOGLOBIN A1a 1.2 %; HEMOGLOBIN A1b 1.7 %; HEMOGLOBIN Ao 84.6 %; HEMOGLOBIN P3 5.7 %
--- NOTE | 2016-12-26 13:30 | HHI.DCPOC ---
Discharge Care Plan Goals to Promote Your Health * To prevent worsening of your condition and complications follow all discharge instructions * To maintain your health at the optimal level take all medications as prescribed Directions to Meet Your Goals Take your medications as prescribed Follow your dietary instruction Follow activity as directed Keep your appointments as scheduled Take your immunizations and boosters as scheduled If your symptoms worsen call your PCP, if no PCP go to Urgent Care Center or Emergency Room Smoking is Dangerous to Your Health. Avoid second hand smoke Call the 24-hour hour crisis hotline for domestic abuse at Anya Washingtno MD R3 Dec 26, 2016 13:30
--- NOTE | 2016-12-26 13:35 | HHI.FF ---
Face to Face Verification Diagnosis: (1) Femur fracture, left Physical Therapy Order: Evaluate and Treat I have seen patient Hortencia Dougherty on 12/26/16. My clinical findings support the need for the requested home health care services because: she is non-weight bearing s/p femur fracture Ltd mobility - disease progression Deconditioned w/ increased weakness Limited ability to care for self I certify that my clinical findings support that this patient is homebound because: she is non-weight bearing 2/2 femur fracture Post-op weakness Unsteady gait/balance Unsafe to leave home unassisted Anya Washington MD R3 Dec 26, 2016 13:35
[2016-12-26] MEDS ORDERED: BEDSIDE COMMODE1 MI1 (13:36)
[2016-12-26] MEDS ORDERED: WALKER WHEELS/F1 MIS (13:36)
--- NOTE | 2016-12-26 13:41 | HHI.DS ---
PCP Discharge Summary Admission Date Dec 20, 2016 at 15:02 Discharge Date: Dec 26, 2016 Admitting Diagnosis Femur Fracture. (1) Femur fracture, left ICD Code: S72.92XA Diagnosis: Principal (2) Tobacco abuse ICD Code: Z72.0 Diagnosis: Secondary (3) Elevated blood pressure reading without diagnosis of hypertension ICD Code: R03.0 Diagnosis: Secondary (4) Postoperative anemia due to acute blood loss ICD Code: D62 Diagnosis: Principal (5) Facial contusion ICD Code: S00.83XA Diagnosis: Principal (6) Anxiety ICD Code: F41.9 Diagnosis: Secondary Procedures 12/20/16 Open reduction internal fixation of left distal femur fracture Brief History - From Admission HPI: This is a 56-year-old female with a past medical history significant for anxiety, depression, chronic back pain and osteoarthritis who presents to [facility] ED with complaints of left leg pain status post a fall she sustained at home earlier today and was found to have a distal femur fracture. Patient reports she tripped on the steps coming out of her house and fell with her left leg up underneath her and felt a distinct pop. Patient believes she may have hit the right side of her face. Patient reports a history of falling a few days ago inside her home when she tripped over her feet after she had a few too many drinks in celebration of her anniversary injuring the right side of her face. She denies any loss of consciousness as a result of today's fall or the one that she sustained several days ago. Patient states that she is not an everyday drinker and in fact had not had any alcohol since 1987 up until 2 days ago. Presently, she is complaining of 6 out of 10 left leg pain. ED physician has already consulted or if it was tentatively planning take the patient back to the OR today. She has elevated blood pressure likely due to pain. Patient does not endorse a history of hypertension. Patient denies any headache or vision changes. She denies any cough shortness of breath or chest pain. She does endorse complaints of nausea which she thinks is from the pain medication. She denies any vomiting or abdominal pain. Denies any diarrhea, constipation or urinary difficulties. CBC/BMP: 12/26/16 0714 12/26/16 0714 Significant Findings Laboratory Tests Test 12/24/16 12/25/16 12/26/16 11:00 17:38 07:14 White Blood Count 2.9 TH/MM3 2.8 TH/MM3 2.7 TH/MM3 (4.0-11.0) (4.0-11.0) (4.0-11.0) Red Blood Count 2.26 MIL/MM3 3.04 MIL/MM3 3.05 MIL/MM3 (4.00-5.30) (4.00-5.30) (4.00-5.30) Hemoglobin 7.5 GM/DL 9.8 GM/DL 9.5 GM/DL (11.6-15.3) (11.6-15.3) (11.6-15.3) Hematocrit 22.3 % 28.8 % 29.3 % (35.0-46.0) (35.0-46.0) (35.0-46.0) Eosinophils (%) (Auto) 4.5 % (0.0-4.0) 5.7 % (0.0-4.0) 6.0 % (0.0-4.0) Neutrophils # (Auto) 1.4 TH/MM3 1.1 TH/MM3 1.0 TH/MM3 (1.8-7.7) (1.8-7.7) (1.8-7.7) Lymphocytes (%) (Auto) 45.7 % 49.8 % (9.0-44.0) (9.0-44.0) Creatinine 0.47 MG/DL (0.50-1.00) Total Protein 5.8 GM/DL 5.7 GM/DL (6.4-8.2) (6.4-8.2) Albumin 2.3 GM/DL 2.3 GM/DL (3.4-5.0) (3.4-5.0) Carbon Dioxide Level 33.6 MEQ/L (21.0-32.0) Anion Gap 4 MEQ/L (5-15) PE at Discharge GENERAL: AWAKE ALERT AND ORIENTED SKIN: Warm and dry. HEAD: Atraumatic. Normocephalic. EYES: Pupils equal and round. No scleral icterus. No injection or drainage. EOMI INTACT ENT: No nasal bleeding or discharge. Mucous membranes pink and moist. TONGUE MIDLINE NECK: Trachea midline. No JVD. CARDIOVASCULAR: Regular rate and rhythm. S1, S2 NO S3 OR S4 NO HEAVE OR THRILL OR RUB OR GALLOP RESPIRATORY: No accessory muscle use. Clear to auscultation. Breath sounds equal bilaterally. GASTROINTESTINAL: Abdomen soft, non-tender, nondistended. Hepatic and splenic margins not palpable. MUSCULOSKELETAL: Extremities without clubbing, cyanosis, or edema. No obvious deformities. LEFT LE IN BRACE- NEEDS TO LEARN HOW TO MOVE WELL WITHOUT PUTTING WEIGHT ON IT NEUROLOGICAL: Awake and alert. No obvious cranial nerve deficits. Motor grossly within normal limits. 4 out of 5 muscle strength in the arms and legs. Normal speech. PSYCHIATRIC: Appropriate mood and affect; insight and judgment normal. Hospital Course 1. Left distal femur fracture status post fall at home: Appreciate orthopedic surgery recommendations. Status post surgical repair. Continue pain control, immobilizer splint. DC to home with home PT as patient does not want to go to rehab. DC with wheeled walker and bedside commode. F/u with ortho in 2 weeks. 2. Right-sided facial contusion: Patient reported that she fell 2 days prior to admission and also believes that she hit the same area on her most recent fall. Improving. 3. Elevated blood pressure: Patient denies history of hypertension. This is likely secondary to pain. Resolved. 4. Tobacco abuse: Counseled to quit smoking. Continue Nicotine patch. 5. Postoperative anemia: Secondary to acute blood loss. H&H stable. 6. DVT prophylaxis: Xarelto per Ortho Pt Condition on Discharge: Stable Discharge Disposition: Discharge Home Discharge Time: <= 30 minutes Discharge Instructions DIET: Follow Instructions for: As Tolerated, No Restrictions Activities you can perform: Non Weight Bearing Follow up Referrals: Orthopedics - 2 Weeks New Medications: Aspirin (Aspirin) 325 Mg Tab 325 MG PO DAILY Start Aspirin after Lovenox is completed. Prevent Blood Clot # 30 Ref 0 TAB Bedside Commode (Bedside Commode) 1 Mis Mis 1 EA .ROUTE DIRECTED #1 EA Hydrocodone-Acetaminophen ([place]) 5-325 mg Tab 1-2 TAB PO Q4H PRN PAIN #60 Ref 0 TAB Rivaroxaban (Xarelto) 20 Mg Tab 10 MG PO DAILY Blood Clot Prevention #20 Ref 0 TAB Walker with Front Wheels (Walker with Front Wheels) 1 Mis Mis 1 EA .ROUTE DIRECTED #1 Ref 0 EA Anya Washington MD R3 Dec 26, 2016 13:41
[2016-12-26 16:00] VITALS: BP 123/79; PULSE 88; RESP 18; TEMP 97.4; O2SAT 95
[2016-12-26] MEDS: ENOXAPARIN SODIUM 40 MG/0.4 ML SYRINGE SQ SCH (18:44)
[2016-12-26 20:15] VITALS: BP 118/70; PULSE 86; RESP 17; TEMP 96.8; O2SAT 95
[2016-12-26] MEDS: diphenhydrAMINE HCL 25 MG CAP PO PRN (20:19)
[2016-12-27 00:04] VITALS: BP 107/59; PULSE 85; RESP 16; TEMP 96.5; O2SAT 95
[2016-12-27] MEDS: NS + KCL 20 MEQ INJ 1,000 ML IV SCH (04:00)
[2016-12-27] MEDS: MAGNESIUM HYDROXIDE SUSP 30 ML CUP PO PRN (07:48)
[2016-12-27] MEDS: SENNOSIDES 8.6 MG TAB PO PRN (07:48)
[2016-12-27] MEDS: LORazepam 0.5 MG TAB PO PRN (07:48)
[2016-12-27] MEDS: CYCLOBENZAPRINE HCL 10 MG TAB PO PRN (07:48)
[2016-12-27] MEDS: ACETAMINOPHEN/HYDROcodone 325 MG/10 MG TAB PO PRN (07:49)
[2016-12-27 08:00] VITALS: BP 129/74; PULSE 81; RESP 17; TEMP 96.4; O2SAT 93
[2016-12-27] MEDS: SODIUM CHLORIDE 0.9% FLUSH 5 ML FLUSH IVF SCH (09:00)
[2016-12-27] MEDS: REMOVE OLD PATCH T-DERMAL SCH (09:00)
[2016-12-27] MEDS: MULTIVITAMINS/MINERALS THERAPEUTIC TAB PO SCH (09:33)
[2016-12-27] MEDS: NICOTINE 21 MG/24 HR PATCH T-DERMAL SCH (09:33)
[2016-12-27] MEDS: DOCUSATE SODIUM 50 MG/SENNA 8.6 MG TAB PO SCH (09:33)
[2016-12-27] MEDS ORDERED: PERI8.6T PO (10:48)
--- NOTE | 2016-12-27 10:50 | HHI.PR ---
Subjective Remarks Pt seen and evaluated, has no concerns at this time. states that she has everything she needs now. will have outpatient PT. denies any CP/SOB/N/V Objective Vitals Vital Signs Date Time Temp Pulse Resp B/P Pulse Ox O2 Delivery O2 Flow Rate FiO2 12/27/16 08:00 96.4 81 17 129/74 93 12/27/16 07:48 Room Air 12/27/16 00:04 96.5 85 16 107/59 95 12/26/16 20:15 96.8 86 17 118/70 95 12/26/16 16:00 97.4 88 18 123/79 95 12/26/16 12:00 96.7 88 18 99/60 94 I/O 12/26/16 12/26/16 12/26/16 12/27/16 12/27/16 12/27/16 07:00 15:00 23:00 07:00 15:00 23:00 Intake Total 240 ml 600 ml 240 ml 120 ml Balance 240 ml 600 ml 240 ml 120 ml Intake Oral 240 ml 600 ml 240 ml 120 ml # Voids 1 2 1 1 # Bowel Movements 0 1 0 0 Result Diagram: 12/26/16 0714 12/26/16 0714 Imaging Last Impressions Ankle X-Ray 12/22/16 0000 Signed Impressions: Service Date/Time: Thursday, December 22, 2016 14:41 - CONCLUSION: Mild degenerative changes. Sean Chu MD FACR Maxillofacial CT 12/20/16 0000 Signed Impressions: Service Date/Time: Tuesday, December 20, 2016 14:09 - CONCLUSION: 1. Right infraorbital soft tissue swelling. Arnol Bee Jr., MD Hip and Pelvis X-Ray 12/20/16 0000 Signed Impressions: Service Date/Time: Tuesday, December 20, 2016 12:15 - CONCLUSION: Fracture of distal femur not identified on this examination and the hip appears intact. Gómez Clemons MD Head CT 12/20/16 0000 Signed Impressions: Service Date/Time: Tuesday, December 20, 2016 14:05 - CONCLUSION: 1. No acute intracranial abnormality. Kenny Byrd MD Femur X-Ray 12/20/16 0000 Signed Impressions: Service Date/Time: Tuesday, December 20, 2016 18:48 - CONCLUSION: Intraoperative images Arnol Richmond MD Chest X-Ray 12/20/16 0000 Signed Impressions: Service Date/Time: Tuesday, December 20, 2016 12:07 - CONCLUSION: No acute cardiopulmonary disease. Gómez Clemons MD Cervical Spine CT 12/20/16 0000 Signed Impressions: Service Date/Time: Tuesday, December 20, 2016 14:05 - CONCLUSION: 1. Subtle anterolisthesis of C5 on C6, likely degenerative. Flexion and extension views may be obtained if there is clinical concern regarding ligamentous instability. 2. Otherwise, no acute fracture or subluxation. Kenny Byrd MD Objective Remarks GENERAL: AWAKE ALERT AND ORIENTED CARDIOVASCULAR: Regular rate and rhythm. RESPIRATORY: No accessory muscle use. Clear to auscultation. Breath sounds equal bilaterally. GASTROINTESTINAL: Abdomen soft, non-tender, nondistended. MUSCULOSKELETAL: Extremities without edema. LEFT LE IN BRACE- NEEDS TO LEARN HOW TO MOVE WELL WITHOUT PUTTING WEIGHT ON IT NEUROLOGICAL: Awake and alert. Normal speech. PSYCHIATRIC: Appropriate mood and affect Procedures 12/20/16 Open reduction internal fixation of left distal femur fracture A/P Problem List: (1) Femur fracture, left ICD Code: S72.92XA Status: Acute (2) Tobacco abuse ICD Code: Z72.0 Status: Acute (3) Elevated blood pressure reading without diagnosis of hypertension ICD Code: R03.0 Status: Resolved (4) Postoperative anemia due to acute blood loss ICD Code: D62 Status: Acute (5) Facial contusion ICD Code: S00.83XA Status: Acute (6) Anxiety ICD Code: F41.9 Status: Acute Assessment and Plan 1. Left distal femur fracture status post fall at home: Appreciate orthopedic surgery recommendations. Status post surgical repair. Continue pain control, immobilizer splint. DC to home with outpatient PT as patient does not want to go to rehab. DC with wheeled walker and bedside commode. F/u with ortho in 2 weeks. on xarelto. 2. Right-sided facial contusion: Patient reported that she fell 2 days prior to admission and also believes that she hit the same area on her most recent fall. Improving. pt has no concerns at this time. 3. Elevated blood pressure: Patient denies history of hypertension. This is likely secondary to pain. Resolved and stable today 4. Tobacco abuse: has been counseled to quit smoking. 5. Postoperative anemia: Secondary to acute blood loss. H&H stable at 9.5 yesterday. 6. DVT prophylaxis: Xarelto per Ortho Discharge Planning d/c home today. see d/c orders Problem Qualifiers (1) Femur fracture, left: Qualified Code: S72.442A - Closed displaced fracture of distal epiphysis of left femur, initial encounter Kristal Troy MD Dec 27, 2016 10:50
== END 2016-12-27 12:55 | disposition home or self-care (01) | DRG 481 ==
LOC: NEPD 11:34 → NEDA 15:02 → N06A 20:53
PROVIDERS: ADMIT Hospitalist; ATTEND Hospitalist
PROC: 0QSC04Z Reposition Left Lower Femur with Internal Fixation Device, Open Approach (ICD-10-PCS; 2016-12-20)
PROC: 30233N1 Transfusion of Nonautologous Red Blood Cells into Peripheral Vein, Percutaneous Approach (ICD-10-PCS; principal; 2016-12-24)
DX: S72.462A Displaced supracondylar fracture with intracondylar extension of lower end of left femur, initial encounter for closed fracture (principal); D62 Acute posthemorrhagic anemia; F32.9 Major depressive disorder, single episode, unspecified; F41.9 Anxiety disorder, unspecified; M19.90 Unspecified osteoarthritis, unspecified site; G89.29 Other chronic pain; M54.9 Dorsalgia, unspecified; F17.210 Nicotine dependence, cigarettes, uncomplicated; R03.0 Elevated blood-pressure reading, without diagnosis of hypertension; M81.0 Age-related osteoporosis without current pathological fracture; F40.240 Claustrophobia; M43.12 Spondylolisthesis, cervical region; S00.83XA Contusion of other part of head, initial encounter; W10.8XXA Fall (on) (from) other stairs and steps, initial encounter; Y92.018 Other place in single-family (private) house as the place of occurrence of the external cause; Z86.73 Personal history of transient ischemic attack (TIA), and cerebral infarction without residual deficits; Z91.81 History of falling; Z79.82 Long term (current) use of aspirin
CPT/HCPCS: 36430; 51702; 70450; 70486; 71010; 72125; 73502; 73552; 73610; 76000; 80048; 80053; 80307; 82550; 83036; 83735; 84100; 84439; 84443; 85014; 85018; 85025; 85610; 85730; 86850; 86900; 86901; 86920; 87641; 93005; 94150; 96374; 96375; 96376; C1713; J0690; J1170; J1580; J1650; J2060; J2250; J2270; J2370; J2405; J3010; J3370; J3480; J7120; L0150; L1830; P9016